=== PATIENT | male | born 1950 | race African-American/Black ===

== ENCOUNTER 2019-05-23 11:30 | Inpatient (IN) | payer MEDICARE, MEDICAID ==
[~2019-05-23] VITALS: Ht 182.9 cm; Wt 108.1 kg
[2019-05-23] MEDS ORDERED: INSNOV SQ (11:35)
[2019-05-23] MEDS ORDERED: HTN PO (11:35)
[2019-05-23] MEDS ORDERED: DIABETIC MED PO (11:35)
[2019-05-23] MEDS ORDERED: NITROGLYCERIN 50 MG/D5% WATER 250 ML IV PRN ×3 (11:42→20:30)
[2019-05-23 12:00] LABS: BASOPHILS % (AUTO) 1.2 % (0.0-2.0); EOSINOPHILS % (AUTO) 0.7 % (1.0-6.0); HEMATOCRIT 35.2 % (41-53); HEMOGLOBIN 10.8 g/dL (13.5-17.5); LYMPHOCYTES # (AUTO) 4.7 K/uL (1.0-4.8); LYMPHOCYTES % (AUTO) 21.6 % (22.0-44.0); MEAN CORPUSCULAR HEMOGLOBIN 22.4 pg (26.0-34.0); MEAN CORPUSCULAR HGB CONC 30.7 G/dL (31.0-37.0); MEAN CORPUSCULAR VOLUME 73 fL (80-100); MONOCYTES # (AUTO) 1.5 K/uL (0.1-1.0); MONOCYTES % (AUTO) 6.9 % (2.0-9.0); NEUTROPHILS # (AUTO) 15.3 K/uL (1.8-7.7); NEUTROPHILS % (AUTO) 69.6 % (40.0-70.0); PLATELET COUNT (AUTO) 330 K/uL (150-450); RED BLOOD CELL COUNT(AUTO) 4.83 MIL/uL (4.50-5.90)
[2019-05-23] MEDS ORDERED: FUROSEMIDE 40 MG/4 ML VIAL IVP ONE (12:00)
[2019-05-23] MEDS ORDERED: AZITHROMYCIN 500 MG/NS 250 ML IV ONE (12:00)
[2019-05-23] MEDS ORDERED: CefTRIAXone 1 GM/DEXTROSE 50 ML IV ONE (12:00)
[2019-05-23 12:14] LABS: CREATININE 6.23 mg/dL (0.60-1.30); POTASSIUM 4.2 mmol/L (3.5-5.1)
[2019-05-23 12:20] LABS: BILIRUBIN,TOTAL 0.6 mg/dL (0.1-1.0); TOTAL PROTEIN, SERUM 8.1 g/dL (6.4-8.2)
[2019-05-23 12:24] LABS: ABG BASE EXCESS -6.1 mmol/L (-2.0-3.0); ABG CARBOXYHEMOGLOBIN 0.8 % (0.0-1.5); ABG HCO3 19.5 mmol/L (22.0-26.0); ABG METHEMOGLOBIN 0.2 % (0.0-1.5); ABG OXYGEN CONTENT 15.5 mL/dL (15.0-23.0); ABG OXYGEN SATURATION 94.1 % (95.0-98.0); ABG OXYHEMOGLOBIN 93.2 % (94.0-100.0); ABG PCO2 46 mmHg (35-45); ABG TOTAL HEMOGLOBIN 11.8 G/dL (12.0-18.0); PO2, ARTERIAL BG 78.6 mmHg (79.0-87.0); SITE, BLOOD GAS LFT RADIAL; SOURCE, BLOOD GAS ARTERIAL; TEMPERATURE, FAHRENHEIT, BG 98.6 FAHREN (96.0-98.6)
[2019-05-23 12:26] LABS: O2 DEVICE,BLOOD GAS NON REBREATHER (ROOM AIR)
[2019-05-23] MEDS ORDERED: ACETAMINOPHEN 325 MG TABLET PO PRN (12:45)
[2019-05-23] MEDS ORDERED: ONDANSETRON HCL 4 MG/2 ML VIAL IVP PRN (12:45)
[2019-05-23 13:07] LABS: AMPHET/METH SCREEN,URINE NEGATIVE (NEGATIVE); BARBITURATE SCREEN, URINE NEGATIVE (NEGATIVE); BENZODIAZEPINES SCREEN,URINE NEGATIVE (NEGATIVE); CANNABINOID SCREEN,URINE NEGATIVE (NEGATIVE); COCAINE SCREEN,URINE POSITIVE (NEGATIVE); METHADONE SCREEN, URINE NEGATIVE (NEGATIVE); OPIATE SCREEN,URINE NEGATIVE (NEGATIVE); PHENCYCLIDINE SCREEN,URINE POSITIVE (NEGATIVE)
[2019-05-23 20:45] VITALS: BP 212/117
[2019-05-23] MEDS ORDERED: VANCOMYCIN HCL 1 GM/D5% WATER 200 ML IV PRN (22:15)
[2019-05-23] MEDS ORDERED: SODIUM CHLORIDE 0.9% 250 ML IV ONE (22:21)
[2019-05-23] MEDS: PIPERACILLIN SODIUM/TAZOBACTAM 2.25 GM in DEXTROSE 5%-WATER 50 ML IV SCH (22:24)
[2019-05-23] MEDS ORDERED: VANCOMYCIN HCL 1 GM/D5% WATER 200 ML IV ONE (22:30)
[2019-05-24] VITALS: BP 141/84
[2019-05-24] MEDS ORDERED: MAGNESIUM HYDROXIDE SUSPENSION 30 ML UDCUP PO PRN (00:45)
[2019-05-24] MEDS ORDERED: DEXTROSE 50%-WATER 25 GM/50 ML SYRINGE IVP PRN (00:45)
[2019-05-24] MEDS ORDERED: OxyCODONE HCL/ACETAMINOPHEN 5-325 MG TABLET PO PRN ×2 (00:45)
[2019-05-24] MEDS ORDERED: ACETAMINOPHEN 325 MG TABLET PO PRN (00:45)
[2019-05-24] MEDS ORDERED: 0.9% SODIUM CHLORIDE 10 ML SYRINGE IVP PRN (00:45)
[2019-05-24] MEDS ORDERED: ONDANSETRON HCL 4 MG/2 ML VIAL IVP PRN (00:45)
[2019-05-24] MEDS ORDERED: VANCOMYCIN HCL 1 GM/D5% WATER 200 ML IV ONE (03:00)
[2019-05-24] MEDS: PIPERACILLIN SODIUM/TAZOBACTAM 2.25 GM in DEXTROSE 5%-WATER 50 ML IV SCH ×4 (03:34→21:27)
[2019-05-24 04:00] VITALS: BP 177/79
[2019-05-24 05:23] LABS: CALCIUM, TOTAL 7.6 mg/dL (8.8-10.5); CREATININE 6.33 mg/dL (0.60-1.30); MAGNESIUM 1.6 mg/dL (1.80-2.40); POTASSIUM 3.7 mmol/L (3.5-5.1)
[2019-05-24] MEDS: INSULIN LISPRO 100 UNITS/ML SQ PRN ×4 (06:11→21:28)
[2019-05-24 07:00] LABS: GLUCOSE,POINT OF CARE 199 MG/DL (70-110)
[2019-05-24 07:45] VITALS: BP 165/74
[2019-05-24 08:01] VITALS: BP 179/86
[2019-05-24] MEDS: FAMOTIDINE 10 MG/ML 2 ML VIAL IVP SCH (08:49)
[2019-05-24] MEDS: DOCUSATE SODIUM 100 MG CAPSULE PO SCH ×2 (08:49→21:27)
[2019-05-24] MEDS ORDERED: AmLODIPine BESYLATE 5 MG TABLET PO SCH ×2 (09:00→17:45)
[2019-05-24 12:00] VITALS: BP 159/83
[2019-05-24] MEDS ORDERED: METOPROLOL SUCCINATE 25 MG ER TABLET PO SCH (12:30)
[2019-05-24 14:16] LABS: GLUCOSE,POINT OF CARE 271 MG/DL (70-110)
[2019-05-24] MEDS ORDERED: AmLODIPine BESYLATE 5 MG TABLET PO STA (17:36)
[2019-05-24 18:22] LABS: GLUCOSE,POINT OF CARE 190 MG/DL (70-110)
[2019-05-24 20:00] VITALS: BP 137/73
[2019-05-24] MEDS: METOPROLOL TARTRATE 25 MG TABLET PO SCH (21:27)
[2019-05-25] VITALS (7 sets, daily range): BP systolic 134–157; BP diastolic 58–88
[2019-05-25] MEDS: PIPERACILLIN SODIUM/TAZOBACTAM 2.25 GM in DEXTROSE 5%-WATER 50 ML IV SCH ×4 (03:33→23:02)
[2019-05-25 04:46] LABS: BASOPHILS % (AUTO) 0.8 % (0.0-2.0); EOSINOPHILS % (AUTO) 1.1 % (1.0-6.0); HEMATOCRIT 28.4 % (41-53); HEMOGLOBIN 8.9 g/dL (13.5-17.5); LYMPHOCYTES # (AUTO) 2.1 K/uL (1.0-4.8); LYMPHOCYTES % (AUTO) 12.9 % (22.0-44.0); MEAN CORPUSCULAR HEMOGLOBIN 22.4 pg (26.0-34.0); MEAN CORPUSCULAR HGB CONC 31.4 G/dL (31.0-37.0); MEAN CORPUSCULAR VOLUME 71 fL (80-100); MONOCYTES # (AUTO) 1.8 K/uL (0.1-1.0); MONOCYTES % (AUTO) 10.7 % (2.0-9.0); NEUTROPHILS # (AUTO) 12.2 K/uL (1.8-7.7); NEUTROPHILS % (AUTO) 74.5 % (40.0-70.0); PLATELET COUNT (AUTO) 242 K/uL (150-450); RED BLOOD CELL COUNT(AUTO) 3.98 MIL/uL (4.50-5.90); RED CELL DISTRIBUTION WIDTH 15.4 % (11.5-14.5)
[2019-05-25 05:15] LABS: CALCIUM, TOTAL 7.7 mg/dL (8.8-10.5); CREATININE 6.01 mg/dL (0.60-1.30); VANCOMYCIN,RANDOM 20.1 mcg/mL (25.0-50.0)
[2019-05-25] MEDS: INSULIN LISPRO 100 UNITS/ML SQ PRN ×4 (05:55→20:41)
[2019-05-25 06:21] LABS: GLUCOSE,POINT OF CARE 205 MG/DL (70-110)
[2019-05-25 06:21] LABS: GLUCOSE,POINT OF CARE 173 MG/DL (70-110)
[2019-05-25] MEDS: METOPROLOL TARTRATE 25 MG TABLET PO SCH ×2 (06:21→20:33)
[2019-05-25] MEDS: DOCUSATE SODIUM 100 MG CAPSULE PO SCH ×2 (08:00→20:34)
[2019-05-25] MEDS: AmLODIPine BESYLATE 10 MG TABLET PO SCH (08:00)
[2019-05-25] MEDS: FAMOTIDINE 10 MG/ML 2 ML VIAL IVP SCH (08:00)
[2019-05-25] MEDS: HydrALAZINE HCL 25 MG TABLET PO SCH ×3 (10:22→20:34)
[2019-05-25] MEDS: NITROGLYCERIN 2% (1 GM=INCH) PACKET TP SCH ×3 (12:05→23:02)
[2019-05-25 12:17] LABS: GLUCOSE,POINT OF CARE 322 MG/DL (70-110)
[2019-05-25] MEDS ORDERED: VANCOMYCIN HCL 1 GM/D5% WATER 200 ML IV ONE (15:00)
[2019-05-25 22:31] LABS: GLUCOMETER DEV NAME(LOC) 5N.2; GLUCOSE,POINT OF CARE 192 MG/DL (70-110)
[2019-05-25 22:31] LABS: GLUCOMETER DEV NAME(LOC) 5N.2; GLUCOSE,POINT OF CARE 201 MG/DL (70-110)
[2019-05-26] MEDS: NITROGLYCERIN 2% (1 GM=INCH) PACKET TP SCH ×3 (05:03→17:27)
[2019-05-26] MEDS: PIPERACILLIN SODIUM/TAZOBACTAM 2.25 GM in DEXTROSE 5%-WATER 50 ML IV SCH ×4 (05:03→22:09)
[2019-05-26 05:18] VITALS: BP 156/85
[2019-05-26] MEDS: INSULIN LISPRO 100 UNITS/ML SQ PRN ×4 (06:08→20:36)
[2019-05-26 06:55] LABS: CALCIUM, TOTAL 7.6 mg/dL (8.8-10.5); CREATININE 5.96 mg/dL (0.60-1.30); MAGNESIUM 1.7 mg/dL (1.80-2.40)
[2019-05-26 07:01] LABS: GLUCOMETER DEV NAME(LOC) 5N.2; GLUCOSE,POINT OF CARE 153 MG/DL (70-110)
[2019-05-26] MEDS: METOPROLOL TARTRATE 25 MG TABLET PO SCH ×2 (08:14→20:33)
[2019-05-26] MEDS: HydrALAZINE HCL 25 MG TABLET PO SCH (08:14)
[2019-05-26] MEDS: AmLODIPine BESYLATE 10 MG TABLET PO SCH (08:14)
[2019-05-26] MEDS: FAMOTIDINE 10 MG/ML 2 ML VIAL IVP SCH (08:15)
[2019-05-26 08:29] VITALS: BP 157/81
[2019-05-26] MEDS: DOCUSATE SODIUM 100 MG CAPSULE PO SCH ×2 (09:00→20:33)
[2019-05-26 11:59] VITALS: BP 165/86
[2019-05-26 16:56] VITALS: BP 139/84
[2019-05-26] MEDS: HydrALAZINE HCL 50 MG TABLET PO SCH ×2 (17:12→20:33)
[2019-05-26 20:33] VITALS: BP 165/77
[2019-05-27 00:22] VITALS: BP 149/79
[2019-05-27] MEDS: NITROGLYCERIN 2% (1 GM=INCH) PACKET TP SCH ×4 (00:26→17:49)
[2019-05-27] MEDS: PIPERACILLIN SODIUM/TAZOBACTAM 2.25 GM in DEXTROSE 5%-WATER 50 ML IV SCH ×3 (04:33→17:49)
[2019-05-27 04:58] VITALS: BP 147/79
[2019-05-27 05:36] LABS: GLUCOMETER DEV NAME(LOC) 5N.2; GLUCOSE,POINT OF CARE 293 MG/DL (70-110)
[2019-05-27 05:36] LABS: GLUCOMETER DEV NAME(LOC) 5S.2A; GLUCOSE,POINT OF CARE 218 MG/DL (70-110)
[2019-05-27 05:36] LABS: GLUCOMETER DEV NAME(LOC) 5N.2; GLUCOSE,POINT OF CARE 212 MG/DL (70-110)
[2019-05-27] MEDS: INSULIN LISPRO 100 UNITS/ML SQ PRN ×4 (06:13→21:15)
[2019-05-27 06:33] LABS: BASOPHILS % (AUTO) 1.5 % (0.0-2.0); EOSINOPHILS % (AUTO) 2.4 % (1.0-6.0); HEMATOCRIT 27.2 % (41-53); HEMOGLOBIN 8.6 g/dL (13.5-17.5); LYMPHOCYTES # (AUTO) 1.8 K/uL (1.0-4.8); LYMPHOCYTES % (AUTO) 14.5 % (22.0-44.0); MEAN CORPUSCULAR HEMOGLOBIN 22.7 pg (26.0-34.0); MEAN CORPUSCULAR HGB CONC 31.7 G/dL (31.0-37.0); MEAN CORPUSCULAR VOLUME 72 fL (80-100); MONOCYTES # (AUTO) 1.1 K/uL (0.1-1.0); MONOCYTES % (AUTO) 8.7 % (2.0-9.0); NEUTROPHILS # (AUTO) 9.3 K/uL (1.8-7.7); NEUTROPHILS % (AUTO) 72.9 % (40.0-70.0); PLATELET COUNT (AUTO) 262 K/uL (150-450); RED CELL DISTRIBUTION WIDTH 15.5 % (11.5-14.5)
[2019-05-27 06:50] LABS: ALBUMIN 2.2 g/dL (3.4-5.0); BILIRUBIN,TOTAL 0.5 mg/dL (0.1-1.0); CALCIUM, TOTAL 7.9 mg/dL (8.8-10.5); CREATININE 5.77 mg/dL (0.60-1.30); MAGNESIUM 1.8 mg/dL (1.80-2.40); TOTAL PROTEIN, SERUM 6.4 g/dL (6.4-8.2); VANCOMYCIN,RANDOM 17.5 mcg/mL (25.0-50.0)
[2019-05-27 07:20] VITALS: BP_SYST 142; BP_SYST 144; BP_DIAS 87
[2019-05-27] MEDS: DOCUSATE SODIUM 100 MG CAPSULE PO SCH ×2 (08:28→21:10)
[2019-05-27] MEDS: METOPROLOL TARTRATE 25 MG TABLET PO SCH ×2 (08:29→21:10)
[2019-05-27] MEDS: FAMOTIDINE 10 MG/ML 2 ML VIAL IVP SCH (08:29)
[2019-05-27] MEDS: AmLODIPine BESYLATE 10 MG TABLET PO SCH (08:29)
[2019-05-27] MEDS: HydrALAZINE HCL 50 MG TABLET PO SCH ×3 (08:29→21:10)
[2019-05-27 08:31] LABS: GLUCOMETER DEV NAME(LOC) 5N.2; GLUCOSE,POINT OF CARE 174 MG/DL (70-110)
[2019-05-27 11:12] VITALS: BP 152/79
[2019-05-27] MEDS ORDERED: VANCOMYCIN HCL 1 GM/D5% WATER 200 ML IV ONE (13:00)
[2019-05-27 15:20] VITALS: BP 172/92
[2019-05-27] MEDS ORDERED: CloNIDine HCL 0.1 MG TABLET PO PRN (20:00)
[2019-05-27 20:20] VITALS: BP 159/90
[2019-05-27 20:46] LABS: GLUCOMETER DEV NAME(LOC) 5N.2; GLUCOSE,POINT OF CARE 258 MG/DL (70-110)
[2019-05-28 00:26] LABS: GLUCOMETER DEV NAME(LOC) 5N.2; GLUCOSE,POINT OF CARE 207 MG/DL (70-110)
[2019-05-28 00:57] VITALS: BP 145/81
[2019-05-28] MEDS: NITROGLYCERIN 2% (1 GM=INCH) PACKET TP SCH ×3 (01:42→12:51)
[2019-05-28] MEDS: PIPERACILLIN SODIUM/TAZOBACTAM 2.25 GM in DEXTROSE 5%-WATER 50 ML IV SCH ×2 (01:42→10:00)
[2019-05-28 04:37] VITALS: BP 149/78
[2019-05-28] MEDS ORDERED: SODIUM CHLORIDE 0.9% 1,000 ML IV ONE ×2 (05:30→08:44)
[2019-05-28 05:56] LABS: GLUCOMETER DEV NAME(LOC) 5N.1; GLUCOSE,POINT OF CARE 204 MG/DL (70-110)
[2019-05-28 06:15] LABS: BASOPHILS % (AUTO) 1.4 % (0.0-2.0); EOSINOPHILS % (AUTO) 2.8 % (1.0-6.0); HEMATOCRIT 27.9 % (41-53); HEMOGLOBIN 8.9 g/dL (13.5-17.5); LYMPHOCYTES # (AUTO) 1.8 K/uL (1.0-4.8); LYMPHOCYTES % (AUTO) 15.7 % (22.0-44.0); MEAN CORPUSCULAR HEMOGLOBIN 22.5 pg (26.0-34.0); MEAN CORPUSCULAR HGB CONC 31.7 G/dL (31.0-37.0); MEAN CORPUSCULAR VOLUME 71 fL (80-100); MONOCYTES # (AUTO) 0.9 K/uL (0.1-1.0); MONOCYTES % (AUTO) 8.1 % (2.0-9.0); NEUTROPHILS # (AUTO) 8.3 K/uL (1.8-7.7); PLATELET COUNT (AUTO) 293 K/uL (150-450); RED BLOOD CELL COUNT(AUTO) 3.93 MIL/uL (4.50-5.90); RED CELL DISTRIBUTION WIDTH 15.3 % (11.5-14.5)
[2019-05-28 07:13] LABS: CALCIUM, TOTAL 8.2 mg/dL (8.8-10.5); CREATININE 5.71 mg/dL (0.60-1.30); POTASSIUM 3.9 mmol/L (3.5-5.1)
[2019-05-28] MEDS ORDERED: LIDOCAINE/PF 1% 30 ML VIAL ONE (07:24)
[2019-05-28] MEDS ORDERED: SODIUM CHLORIDE 0.9% 0 ML IV ONE (07:24)
[2019-05-28] MEDS ORDERED: HEPARIN SODIUM,PORCINE 5,000 UNITS/ML VIAL ONE ×2 (07:28→09:17)
[2019-05-28 07:46] VITALS: BP 166/91
[2019-05-28 08:32] LABS: GLUCOMETER DEV NAME(LOC) 5S.2A; GLUCOSE,POINT OF CARE 199 MG/DL (70-110)
[2019-05-28] MEDS: FAMOTIDINE 10 MG/ML 2 ML VIAL IVP SCH (09:00)
[2019-05-28] MEDS ORDERED: EPOETIN ALFA 10,000 UNITS/ML VIAL SQ SCH (09:00)
[2019-05-28] MEDS: METOPROLOL TARTRATE 25 MG TABLET PO SCH (09:00)
[2019-05-28] MEDS: HydrALAZINE HCL 50 MG TABLET PO SCH (09:00)
[2019-05-28] MEDS: AmLODIPine BESYLATE 10 MG TABLET PO SCH (09:00)
[2019-05-28] MEDS: DOCUSATE SODIUM 100 MG CAPSULE PO SCH (09:00)
[2019-05-28] MEDS: INSULIN LISPRO 100 UNITS/ML SQ PRN (12:57)
[2019-05-28] MEDS ORDERED: CARV25 PO (15:27)
[2019-05-28] MEDS ORDERED: GLIP10 PO (15:27)
[2019-05-28] MEDS ORDERED: AMLO10TA7 PO (15:27)
[2019-05-28] MEDS ORDERED: LIDOCAINE/PF 2% 5 ML VIAL IM ONE (15:59)
[2019-05-28] MEDS ORDERED: PROPOFOL 1% 20 ML VIAL IVP ONE (15:59)
[2019-05-28] MEDS ORDERED: FentaNYL CITRATE-PF 100 MCG/2 ML VIAL IVP ONE (15:59)
[2019-05-28 16:56] LABS: GLUCOMETER DEV NAME(LOC) 5N.1; GLUCOSE,POINT OF CARE 172 MG/DL (70-110)
== END 2019-05-28 16:00 | disposition home or self-care (01) | DRG 853 ==
LOC: EMS 11:50 → ICU 18:35 → 5S 05-25 13:45
PROVIDERS: ADMIT Internal Medicine; ATTEND Internal Medicine
PROC: 031C0ZF Bypass Left Radial Artery to Lower Arm Vein, Open Approach (ICD-10-PCS; principal; 2019-05-28 08:30)
DX: A41.9 Sepsis, unspecified organism (principal); E43 Unspecified severe protein-calorie malnutrition; J18.1 Lobar pneumonia, unspecified organism; J96.01 Acute respiratory failure with hypoxia; B59 Pneumocystosis; N18.6 End stage renal disease; E87.2 Acidosis; I13.2 Hypertensive heart and chronic kidney disease with heart failure and with stage 5 chronic kidney disease, or end stage renal disease; I16.1 Hypertensive emergency; N17.9 Acute kidney failure, unspecified; I16.0 Hypertensive urgency; D64.9 Anemia, unspecified; E11.21 Type 2 diabetes mellitus with diabetic nephropathy; E11.22 Type 2 diabetes mellitus with diabetic chronic kidney disease; E11.65 Type 2 diabetes mellitus with hyperglycemia; F14.10 Cocaine abuse, uncomplicated; I50.9 Heart failure, unspecified; I25.10 Atherosclerotic heart disease of native coronary artery without angina pectoris; Z91.19 Patient's noncompliance with other medical treatment and regimen; Z68.32 Body mass index [BMI] 32.0-32.9, adult; Z99.2 Dependence on renal dialysis
CPT/HCPCS: 36600; 71250; 82805; 83735; 87040; 87081; 93005; 93306; 93970; 96365; 96368; 96375; 99291; G0378; J0456; J0690; J0696; J0885; J1644; J1940; J2543; J2704; J3010; J3370; J3490; J7030; J7050; J7060

== ENCOUNTER 2019-05-31 09:46 | Inpatient (IN) | payer MEDICARE, MEDICAID ==
[~2019-05-31] VITALS: Ht 180.3 cm; Wt 106.7 kg
[~2019-05-31 09:46] MED LIST: AMLO10TA7 PO; CARV25 PO; GLIP10 PO
[2019-05-31] MEDS ORDERED: BUMETANIDE 0.25 MG/ML 4 ML VIAL IVP ONE (10:00)
[2019-05-31 10:17] LABS: BASOPHILS % (AUTO) 1.2 % (0.0-2.0); EOSINOPHILS % (AUTO) 2.3 % (1.0-6.0); HEMATOCRIT 30.1 % (41-53); HEMOGLOBIN 9.3 g/dL (13.5-17.5); LYMPHOCYTES # (AUTO) 2.7 K/uL (1.0-4.8); LYMPHOCYTES % (AUTO) 21.3 % (22.0-44.0); MEAN CORPUSCULAR HEMOGLOBIN 22.5 pg (26.0-34.0); MEAN CORPUSCULAR HGB CONC 30.9 G/dL (31.0-37.0); MEAN CORPUSCULAR VOLUME 73 fL (80-100); MONOCYTES # (AUTO) 0.9 K/uL (0.1-1.0); NEUTROPHILS # (AUTO) 8.7 K/uL (1.8-7.7); NEUTROPHILS % (AUTO) 68.2 % (40.0-70.0); PLATELET COUNT (AUTO) 359 K/uL (150-450); RED BLOOD CELL COUNT(AUTO) 4.14 MIL/uL (4.50-5.90); RED CELL DISTRIBUTION WIDTH 15.7 % (11.5-14.5)
[2019-05-31 10:24] LABS: CALCIUM, TOTAL 7.8 mg/dL (8.8-10.5); CREATININE 5.74 mg/dL (0.60-1.30); POTASSIUM 3.9 mmol/L (3.5-5.1)
[2019-05-31 10:25] LABS: PROTHROMBIN TIME 10.2 SEC (9.4-11.6)
[2019-05-31 10:49] LABS: ALBUMIN 2.6 g/dL (3.4-5.0); BILIRUBIN,TOTAL 0.4 mg/dL (0.1-1.0); TOTAL PROTEIN, SERUM 7.8 g/dL (6.4-8.2)
[2019-05-31 16:30] LABS: APPEARANCE,URINE CLEAR (CLEAR); BILIRUBIN,URINE NEGATIVE (NEGATIVE); GLUCOSE, URINE (UA) 500 mg/dL (NEGATIVE); KETONES,URINE NEGATIVE (NEGATIVE); LEUKOCYTE ESTERASE ,URINE NEGATIVE (NEGATIVE); NITRATE,URINE NEGATIVE (NEGATIVE); OCCULT BLOOD,URINE TRACE (NEGATIVE); PH,URINE 5.5 (5.0-8.0); PROTEIN,URINE SEE CONFIRM (NEGATIVE); UROBILINOGEN,URINE 0.2 mg/dL (<=1.0)
[2019-05-31 16:39] LABS: SULFOSALICYLIC ACID,URINE 4+ (Negative)
[2019-05-31 16:41] LABS: BACTERIA,URINE None Seen /HPF (None Seen); RBC,URINE 0-2 /HPF (0-2); SQUAMOUS EPITHELIAL CELL,UR Rare /LPF (None Seen)
[2019-05-31 16:44] LABS: AMPHET/METH SCREEN,URINE NEGATIVE (NEGATIVE); BARBITURATE SCREEN, URINE NEGATIVE (NEGATIVE); BENZODIAZEPINES SCREEN,URINE NEGATIVE (NEGATIVE); CANNABINOID SCREEN,URINE NEGATIVE (NEGATIVE); METHADONE SCREEN, URINE NEGATIVE (NEGATIVE); OPIATE SCREEN,URINE NEGATIVE (NEGATIVE)
[2019-05-31 17:04] LABS: COCAINE SCREEN,URINE POSITIVE (NEGATIVE)
[2019-05-31 17:05] LABS: PHENCYCLIDINE SCREEN,URINE POSITIVE (NEGATIVE)
[2019-05-31 17:15] VITALS: BP 149/78
[2019-05-31] MEDS: AmLODIPine BESYLATE 10 MG TABLET PO SCH (17:35)
[2019-05-31] MEDS ORDERED: DEXTROSE 50%-WATER 25 GM/50 ML SYRINGE IVP PRN (17:45)
[2019-05-31] MEDS ORDERED: PNEUMOCOCCAL VACCINE POLYVALENT 0.5 ML VIAL [PPSV23] IM ONE (18:45)
[2019-05-31] MEDS ORDERED: INFLUENZA VIRUS VACCINE QVS 2019-20 (3YR+)/PF 60 MCG/0.5 ML SYRINGE IM ONE (18:45)
[2019-05-31 20:00] VITALS: BP 138/73
[2019-05-31] MEDS: INSULIN LISPRO 100 UNITS/ML SQ PRN (20:31)
[2019-05-31] MEDS: METOPROLOL TARTRATE 25 MG TABLET PO SCH (20:32)
[2019-05-31] MEDS: FUROSEMIDE 40 MG/4 ML VIAL IVP SCH (20:32)
[2019-05-31] MEDS ORDERED: HydrALAZINE HCL 25 MG TABLET PO SCH (21:00)
[2019-06-01 00:01] VITALS: BP 154/82
[2019-06-01 04:08] VITALS: BP 149/82
[2019-06-01] MEDS: INSULIN LISPRO 100 UNITS/ML SQ PRN ×4 (06:40→20:47)
[2019-06-01 06:49] LABS: CALCIUM, TOTAL 7.5 mg/dL (8.8-10.5); CREATININE 5.71 mg/dL (0.60-1.30); MAGNESIUM 1.7 mg/dL (1.80-2.40); PHOSPHORUS 4.5 mg/dL (2.5-4.9); POTASSIUM 3.9 mmol/L (3.5-5.1)
[2019-06-01 07:40] VITALS: BP 143/83
[2019-06-01] MEDS: METOPROLOL TARTRATE 25 MG TABLET PO SCH ×2 (08:59→20:45)
[2019-06-01] MEDS: FUROSEMIDE 40 MG/4 ML VIAL IVP SCH (08:59)
[2019-06-01] MEDS: HydrALAZINE HCL 25 MG TABLET PO SCH ×3 (08:59→20:45)
[2019-06-01] MEDS: AmLODIPine BESYLATE 10 MG TABLET PO SCH (08:59)
[2019-06-01 11:20] VITALS: BP 146/80
[2019-06-01 12:01] LABS: GLUCOMETER DEV NAME(LOC) 5S.1; GLUCOSE,POINT OF CARE 203 MG/DL (70-110)
[2019-06-01 12:01] LABS: GLUCOMETER DEV NAME(LOC) 5S.1; GLUCOSE,POINT OF CARE 201 MG/DL (70-110)
[2019-06-01 16:34] VITALS: BP 153/65
[2019-06-01] MEDS ORDERED: ACETAMINOPHEN 325 MG TABLET PO PRN (16:45)
[2019-06-01] MEDS ORDERED: OMEPRAZOLE 20 MG CAPSULE PO PRN (16:45)
[2019-06-01] MEDS ORDERED: PETROLATUM,WHITE 28 GM JELLY TP PRN (16:45)
[2019-06-01] MEDS ORDERED: ALBUTEROL SULFATE HFA 90 MCG/PUFF 8 GM INHALER IH PRN (16:45)
[2019-06-01] MEDS ORDERED: MAGNESIUM HYDROXIDE SUSPENSION 30 ML UDCUP PO PRN (16:45)
[2019-06-01] MEDS ORDERED: DOCUSATE SODIUM 100 MG CAPSULE PO PRN (16:45)
[2019-06-01] MEDS ORDERED: IBUPROFEN 600 MG TABLET PO PRN (16:45)
[2019-06-01] MEDS ORDERED: ONDANSETRON HCL 4 MG TABLET PO PRN (16:45)
[2019-06-01] MEDS ORDERED: BACITRACIN 28.4 GM OINTMENT TP PRN (16:45)
[2019-06-01] MEDS ORDERED: CloNIDine HCL 0.1 MG TABLET PO PRN (16:45)
[2019-06-01] MEDS ORDERED: BENZOCAINE/MENTHOL LOZENGE MM PRN (16:45)
[2019-06-01] MEDS ORDERED: MAG HYDROX/AL HYDROX/SIMETH ES 30 ML SUSPENSION UDCUP PO PRN (16:45)
[2019-06-01] MEDS ORDERED: LOPERAMIDE HCL 2 MG CAPSULE PO PRN (16:45)
[2019-06-01 20:15] VITALS: BP 143/78
[2019-06-01 21:46] LABS: GLUCOMETER DEV NAME(LOC) 5S.2A; GLUCOSE,POINT OF CARE 153 MG/DL (70-110)
[2019-06-01 21:46] LABS: GLUCOMETER DEV NAME(LOC) 5S.2A; GLUCOSE,POINT OF CARE 222 MG/DL (70-110)
[2019-06-01 21:46] LABS: GLUCOMETER DEV NAME(LOC) 5S.2A; GLUCOSE,POINT OF CARE 202 MG/DL (70-110)
[2019-06-01 21:46] LABS: GLUCOMETER DEV NAME(LOC) 5S.2A; GLUCOSE,POINT OF CARE 169 MG/DL (70-110)
[2019-06-02] VITALS (7 sets, daily range): BP systolic 134–147; BP diastolic 63–79
[2019-06-02] MEDS: INSULIN LISPRO 100 UNITS/ML SQ PRN ×4 (05:57→20:58)
[2019-06-02 06:45] LABS: BASOPHILS % (AUTO) 1.3 % (0.0-2.0); EOSINOPHILS % (AUTO) 2.7 % (1.0-6.0); HEMATOCRIT 28.7 % (41-53); LYMPHOCYTES # (AUTO) 2.5 K/uL (1.0-4.8); LYMPHOCYTES % (AUTO) 19.5 % (22.0-44.0); MEAN CORPUSCULAR HEMOGLOBIN 22.4 pg (26.0-34.0); MEAN CORPUSCULAR HGB CONC 31.3 G/dL (31.0-37.0); MEAN CORPUSCULAR VOLUME 72 fL (80-100); MONOCYTES # (AUTO) 0.9 K/uL (0.1-1.0); MONOCYTES % (AUTO) 7.3 % (2.0-9.0); NEUTROPHILS # (AUTO) 8.9 K/uL (1.8-7.7); NEUTROPHILS % (AUTO) 69.2 % (40.0-70.0); PLATELET COUNT (AUTO) 358 K/uL (150-450); RED CELL DISTRIBUTION WIDTH 15.2 % (11.5-14.5)
[2019-06-02 07:10] LABS: ALBUMIN 2.5 g/dL (3.4-5.0); BILIRUBIN,TOTAL 0.3 mg/dL (0.1-1.0); CALCIUM, TOTAL 7.9 mg/dL (8.8-10.5); CREATININE 5.33 mg/dL (0.60-1.30); MAGNESIUM 1.8 mg/dL (1.80-2.40); PHOSPHORUS 3.9 mg/dL (2.5-4.9); POTASSIUM 3.7 mmol/L (3.5-5.1); TOTAL PROTEIN, SERUM 7.3 g/dL (6.4-8.2)
[2019-06-02] MEDS: FUROSEMIDE 40 MG/4 ML VIAL IVP SCH (08:16)
[2019-06-02] MEDS: HydrALAZINE HCL 25 MG TABLET PO SCH ×3 (08:16→20:51)
[2019-06-02] MEDS: AmLODIPine BESYLATE 10 MG TABLET PO SCH (08:16)
[2019-06-02] MEDS: METOPROLOL TARTRATE 25 MG TABLET PO SCH ×2 (08:16→20:51)
[2019-06-02 15:51] LABS: GLUCOMETER DEV NAME(LOC) 5N.1; GLUCOSE,POINT OF CARE 232 MG/DL (70-110)
[2019-06-02 21:56] LABS: GLUCOMETER DEV NAME(LOC) 5S.2A; GLUCOSE,POINT OF CARE 165 MG/DL (70-110)
[2019-06-02 21:56] LABS: GLUCOMETER DEV NAME(LOC) 5S.2A; GLUCOSE,POINT OF CARE 204 MG/DL (70-110)
[2019-06-03 02:05] LABS: GLUCOMETER DEV NAME(LOC) 5S.1; GLUCOSE,POINT OF CARE 188 MG/DL (70-110)
[2019-06-03 05:26] VITALS: BP 141/65
[2019-06-03] MEDS: INSULIN LISPRO 100 UNITS/ML SQ PRN ×2 (06:29→12:21)
[2019-06-03 06:55] LABS: GLUCOMETER DEV NAME(LOC) 5N.1; GLUCOSE,POINT OF CARE 158 MG/DL (70-110)
[2019-06-03 07:13] VITALS: BP 144/80
[2019-06-03] MEDS ORDERED: IPRATROPIUM BROMIDE 0.5 MG/2.5 ML NEB SOLUTION NEB PRN (08:00)
[2019-06-03] MEDS ORDERED: ALBUTEROL SULFATE 2.5 MG/0.5 ML NEB SOLUTION NEB PRN (08:00)
[2019-06-03] MEDS: FUROSEMIDE 40 MG/4 ML VIAL IVP SCH (09:00)
[2019-06-03] MEDS: METOPROLOL TARTRATE 25 MG TABLET PO SCH (09:01)
[2019-06-03] MEDS: HydrALAZINE HCL 25 MG TABLET PO SCH (09:01)
[2019-06-03 11:02] VITALS: BP 158/87
[2019-06-03] MEDS: AmLODIPine BESYLATE 10 MG TABLET PO SCH (11:28)
[2019-06-03] MEDS ORDERED: HYDR-4174 PO (11:45)
[2019-06-03] MEDS ORDERED: FURO-152 PO (11:46)
[2019-06-05 00:11] LABS: GLUCOMETER DEV NAME(LOC) 5N.2; GLUCOSE,POINT OF CARE 228 MG/DL (70-110)
== END 2019-06-03 15:00 | disposition home or self-care (01) | DRG 291 ==
LOC: EDUNIT# 09:46 → EMS 09:48 → 5S 16:00
PROVIDERS: ADMIT Internal Medicine; ATTEND Internal Medicine
PROC: 3E02340 Introduction of Influenza Vaccine into Muscle, Percutaneous Approach (ICD-10-PCS; principal; 2019-05-31)
PROC: 3E0234Z Introduction of Serum, Toxoid and Vaccine into Muscle, Percutaneous Approach (ICD-10-PCS; 2019-05-31)
PROC: 5A09357 Assistance with Respiratory Ventilation, Less than 24 Consecutive Hours, Continuous Positive Airway Pressure (ICD-10-PCS; 2019-05-31)
DX: I13.0 Hypertensive heart and chronic kidney disease with heart failure and stage 1 through stage 4 chronic kidney disease, or unspecified chronic kidney disease (principal); I50.23 Acute on chronic systolic (congestive) heart failure; E43 Unspecified severe protein-calorie malnutrition; N18.4 Chronic kidney disease, stage 4 (severe); E11.21 Type 2 diabetes mellitus with diabetic nephropathy; E11.22 Type 2 diabetes mellitus with diabetic chronic kidney disease; E55.9 Vitamin D deficiency, unspecified; I25.10 Atherosclerotic heart disease of native coronary artery without angina pectoris; J44.9 Chronic obstructive pulmonary disease, unspecified; K21.9 Gastro-esophageal reflux disease without esophagitis; Z79.84 Long term (current) use of oral hypoglycemic drugs; Z79.899 Other long term (current) drug therapy; Z23 Encounter for immunization
CPT/HCPCS: 83735; 84100; 87081; 90471; 90686; 90732; 93005; 94660; 96374; 99291; J1940; J3490

== ENCOUNTER 2019-07-19 15:09 | Inpatient (IN) | payer MEDICARE, MEDICAID ==
[~2019-07-19] VITALS: Ht 175.3 cm; Wt 107.0 kg
[~2019-07-19 15:09] MED LIST changes: +FURO-152 PO; +HYDR-4174 PO
[2019-07-19 15:28] LABS: GLUCOSE,POINT OF CARE 91 MG/DL (70-110)
[2019-07-19 16:08] LABS: BASOPHILS % (AUTO) 1.5 % (0.0-2.0); EOSINOPHILS % (AUTO) 1.2 % (1.0-6.0); HEMATOCRIT 28.3 % (41-53); HEMOGLOBIN 8.8 g/dL (13.5-17.5); LYMPHOCYTES # (AUTO) 1.8 K/uL (1.0-4.8); LYMPHOCYTES % (AUTO) 20.5 % (22.0-44.0); MEAN CORPUSCULAR HEMOGLOBIN 22.5 pg (26.0-34.0); MEAN CORPUSCULAR HGB CONC 31.2 G/dL (31.0-37.0); MEAN CORPUSCULAR VOLUME 72 fL (80-100); MONOCYTES # (AUTO) 0.7 K/uL (0.1-1.0); MONOCYTES % (AUTO) 7.9 % (2.0-9.0); NEUTROPHILS # (AUTO) 5.9 K/uL (1.8-7.7); NEUTROPHILS % (AUTO) 68.9 % (40.0-70.0); PLATELET COUNT (AUTO) 261 K/uL (150-450); RED BLOOD CELL COUNT(AUTO) 3.93 MIL/uL (4.50-5.90); RED CELL DISTRIBUTION WIDTH 15.5 % (11.5-14.5)
[2019-07-19 16:28] LABS: ALBUMIN 3.6 g/dL (3.4-5.0); BILIRUBIN,TOTAL 1.1 mg/dL (0.1-1.0); CALCIUM, TOTAL 8.7 mg/dL (8.8-10.5); CREATININE 5.15 mg/dL (0.60-1.30); POTASSIUM 4.7 mmol/L (3.5-5.1); TOTAL PROTEIN, SERUM 8.4 g/dL (6.4-8.2)
[2019-07-19] MEDS ORDERED: INSLAN SQ (17:24)
[2019-07-19] MEDS ORDERED: OLME40TA18 PO (17:24)
[2019-07-19] MEDS ORDERED: ROSU10TA22 PO (17:24)
[2019-07-19] MEDS ORDERED: BUMETANIDE 0.25 MG/ML 4 ML VIAL IVP ONE (17:30)
[2019-07-19] MEDS ORDERED: ONDANSETRON HCL 4 MG/2 ML VIAL IVP PRN (18:00)
[2019-07-19] MEDS ORDERED: ACETAMINOPHEN 325 MG TABLET PO PRN (18:00)
[2019-07-19] MEDS ORDERED: 0.9% SODIUM CHLORIDE 10 ML SYRINGE IVP PRN (18:00)
[2019-07-19 20:41] VITALS: BP 159/82
[2019-07-20 00:47] VITALS: BP 160/73
[2019-07-20 01:00] LABS: GLUCOMETER DEV NAME(LOC) 5S.1; GLUCOSE,POINT OF CARE 142 MG/DL (70-110)
[2019-07-20] MEDS ORDERED: -PHARMACY VACCINE NOTE- MISC ONE (01:15)
[2019-07-20 04:08] VITALS: BP 152/66
[2019-07-20 06:38] LABS: BASOPHILS % (AUTO) 1.7 % (0.0-2.0); EOSINOPHILS % (AUTO) 1.6 % (1.0-6.0); HEMATOCRIT 24.6 % (41-53); HEMOGLOBIN 7.9 g/dL (13.5-17.5); LYMPHOCYTES # (AUTO) 1.5 K/uL (1.0-4.8); LYMPHOCYTES % (AUTO) 18.5 % (22.0-44.0); MEAN CORPUSCULAR HEMOGLOBIN 23.1 pg (26.0-34.0); MEAN CORPUSCULAR HGB CONC 32.3 G/dL (31.0-37.0); MEAN CORPUSCULAR VOLUME 72 fL (80-100); MONOCYTES # (AUTO) 0.8 K/uL (0.1-1.0); MONOCYTES % (AUTO) 9.5 % (2.0-9.0); NEUTROPHILS # (AUTO) 5.7 K/uL (1.8-7.7); NEUTROPHILS % (AUTO) 68.7 % (40.0-70.0); PLATELET COUNT (AUTO) 216 K/uL (150-450); RED BLOOD CELL COUNT(AUTO) 3.43 MIL/uL (4.50-5.90); RED CELL DISTRIBUTION WIDTH 15.2 % (11.5-14.5)
[2019-07-20 06:59] LABS: BILIRUBIN,TOTAL 0.9 mg/dL (0.1-1.0); CREATININE 4.93 mg/dL (0.60-1.30); POTASSIUM 4.1 mmol/L (3.5-5.1); TOTAL PROTEIN, SERUM 7.4 g/dL (6.4-8.2)
[2019-07-20] MEDS ORDERED: ALBUTEROL SULFATE 2.5 MG/0.5 ML NEB SOLUTION NEB PRN (07:45)
[2019-07-20] MEDS ORDERED: DEXTROSE 50%-WATER 25 GM/50 ML SYRINGE IVP PRN (07:45)
[2019-07-20] MEDS ORDERED: ONDANSETRON HCL 4 MG/2 ML VIAL IVP PRN (07:45)
[2019-07-20] MEDS ORDERED: IPRATROPIUM BROMIDE 0.5 MG/2.5 ML NEB SOLUTION NEB PRN (07:45)
[2019-07-20] MEDS ORDERED: ACETAMINOPHEN 325 MG TABLET PO PRN (07:45)
[2019-07-20] MEDS ORDERED: HYDROCODONE/ACETAMINOPHEN 5-325 MG TABLET PO PRN (07:45)
[2019-07-20] MEDS ORDERED: ZOLPIDEM TARTRATE 5 MG TABLET PO PRN (07:45)
[2019-07-20 08:13] VITALS: BP 152/74
[2019-07-20 08:57] LABS: THYROID STIMULATING HORMONE 2.96 uIU/mL (0.36-3.74)
[2019-07-20] MEDS: AmLODIPine BESYLATE 10 MG TABLET PO SCH (09:06)
[2019-07-20] MEDS: FERROUS SULFATE 325 MG EC TABLET PO SCH ×2 (09:06→16:39)
[2019-07-20] MEDS: FAMOTIDINE 20 MG TABLET PO SCH (09:06)
[2019-07-20] MEDS: OLMESARTAN MEDOXOMIL 40 MG TABLET PO SCH (09:06)
[2019-07-20] MEDS: HEPARIN SODIUM,PORCINE 5,000 UNITS/ML VIAL SQ SCH ×2 (09:06→20:03)
[2019-07-20] MEDS: CARVEDILOL 25 MG TABLET PO SCH ×2 (09:06→20:02)
[2019-07-20] MEDS: CHOLECALCIFEROL (VIT D3) 1,000 UNITS TABLET PO SCH (09:06)
[2019-07-20] MEDS: BUMETANIDE 0.25 MG/ML 4 ML VIAL IVP SCH ×2 (09:07→20:04)
[2019-07-20] MEDS: INSULIN LISPRO 100 UNITS/ML SQ PRN ×2 (11:37→17:46)
[2019-07-20] MEDS: HydrALAZINE HCL 50 MG TABLET PO SCH ×3 (11:39→20:02)
[2019-07-20 11:40] VITALS: BP_SYST 128; BP_SYST 142; BP_DIAS 71; BP_DIAS 76
[2019-07-20] MEDS ORDERED: EPOETIN ALFA 10,000 UNITS/ML VIAL SQ ONE (12:45)
[2019-07-20 13:35] LABS: AMPHET/METH SCREEN,URINE NEGATIVE (NEGATIVE); BARBITURATE SCREEN, URINE NEGATIVE (NEGATIVE); BENZODIAZEPINES SCREEN,URINE NEGATIVE (NEGATIVE); CANNABINOID SCREEN,URINE POSITIVE (NEGATIVE); COCAINE SCREEN,URINE NEGATIVE (NEGATIVE); METHADONE SCREEN, URINE NEGATIVE (NEGATIVE); OPIATE SCREEN,URINE NEGATIVE (NEGATIVE)
[2019-07-20 13:37] LABS: PHENCYCLIDINE SCREEN,URINE POSITIVE (NEGATIVE)
[2019-07-20 16:01] VITALS: BP 141/68
[2019-07-20] MEDS: GlipiZIDE 10 MG TABLET PO SCH (16:38)
[2019-07-20 19:50] LABS: GLUCOMETER DEV NAME(LOC) 5S.1; GLUCOSE,POINT OF CARE 214 MG/DL (70-110)
[2019-07-20 19:50] LABS: GLUCOMETER DEV NAME(LOC) 5S.1; GLUCOSE,POINT OF CARE 107 MG/DL (70-110)
[2019-07-20 20:25] VITALS: BP 146/78
[2019-07-20] MEDS ORDERED: INSULIN GLARGINE,HUM.REC.ANLOG 100 UNITS/ML SQ SCH (21:00)
[2019-07-20] MEDS ORDERED: ROSUVASTATIN CALCIUM 10 MG TABLET PO SCH (21:00)
[2019-07-21 00:15] VITALS: BP 138/73
[2019-07-21 04:36] VITALS: BP 142/70
[2019-07-21 04:43] LABS: GLUCOMETER DEV NAME(LOC) 5N.2; GLUCOSE,POINT OF CARE 138 MG/DL (70-110)
[2019-07-21 04:43] LABS: GLUCOMETER DEV NAME(LOC) 5N.2; GLUCOSE,POINT OF CARE 162 MG/DL (70-110)
[2019-07-21 06:22] LABS: BASOPHILS % (AUTO) 1.6 % (0.0-2.0); EOSINOPHILS % (AUTO) 1.8 % (1.0-6.0); HEMATOCRIT 24.6 % (41-53); HEMOGLOBIN 8.1 g/dL (13.5-17.5); LYMPHOCYTES # (AUTO) 1.8 K/uL (1.0-4.8); MEAN CORPUSCULAR HEMOGLOBIN 23.5 pg (26.0-34.0); MEAN CORPUSCULAR HGB CONC 32.9 G/dL (31.0-37.0); MEAN CORPUSCULAR VOLUME 71 fL (80-100); MONOCYTES # (AUTO) 0.7 K/uL (0.1-1.0); MONOCYTES % (AUTO) 9.5 % (2.0-9.0); NEUTROPHILS # (AUTO) 4.5 K/uL (1.8-7.7); NEUTROPHILS % (AUTO) 62.1 % (40.0-70.0); PLATELET COUNT (AUTO) 218 K/uL (150-450); RED BLOOD CELL COUNT(AUTO) 3.44 MIL/uL (4.50-5.90)
[2019-07-21 06:27] LABS: HEMOGLOBIN A1C 5.9 % (4.5-6.2)
[2019-07-21 06:38] LABS: BILIRUBIN,TOTAL 0.9 mg/dL (0.1-1.0); CALCIUM, TOTAL 8.1 mg/dL (8.8-10.5); CREATININE 5.09 mg/dL (0.60-1.30); MAGNESIUM 1.8 mg/dL (1.80-2.40); PHOSPHORUS 4.6 mg/dL (2.5-4.9); POTASSIUM 4.2 mmol/L (3.5-5.1); TOTAL PROTEIN, SERUM 6.9 g/dL (6.4-8.2)
[2019-07-21] MEDS: GlipiZIDE 10 MG TABLET PO SCH (06:54)
[2019-07-21 07:47] LABS: GLUCOMETER DEV NAME(LOC) 5N.2; GLUCOSE,POINT OF CARE 92 MG/DL (70-110)
[2019-07-21 08:30] VITALS: BP 146/72
[2019-07-21] MEDS: BUMETANIDE 0.25 MG/ML 4 ML VIAL IVP SCH (09:36)
[2019-07-21] MEDS: CARVEDILOL 25 MG TABLET PO SCH (09:37)
[2019-07-21] MEDS: OLMESARTAN MEDOXOMIL 40 MG TABLET PO SCH (09:37)
[2019-07-21] MEDS: FERROUS SULFATE 325 MG EC TABLET PO SCH (09:37)
[2019-07-21] MEDS: HydrALAZINE HCL 50 MG TABLET PO SCH (09:37)
[2019-07-21] MEDS: AmLODIPine BESYLATE 10 MG TABLET PO SCH (09:37)
[2019-07-21] MEDS: HEPARIN SODIUM,PORCINE 5,000 UNITS/ML VIAL SQ SCH (09:37)
[2019-07-21] MEDS: CHOLECALCIFEROL (VIT D3) 1,000 UNITS TABLET PO SCH (09:37)
[2019-07-21] MEDS: FAMOTIDINE 20 MG TABLET PO SCH (09:37)
[2019-07-21 10:37] VITALS: BP 149/100
[2019-07-21 11:52] LABS: GLUCOMETER DEV NAME(LOC) 5N.2; GLUCOSE,POINT OF CARE 83 MG/DL (70-110)
== END 2019-07-21 11:25 | disposition home or self-care (01) | DRG 291 ==
LOC: EMS 15:10 → 5N 18:56
PROVIDERS: ADMIT Internal Medicine; ATTEND Internal Medicine
DX: I13.0 Hypertensive heart and chronic kidney disease with heart failure and stage 1 through stage 4 chronic kidney disease, or unspecified chronic kidney disease (principal); I50.43 Acute on chronic combined systolic (congestive) and diastolic (congestive) heart failure; E44.0 Moderate protein-calorie malnutrition; N18.4 Chronic kidney disease, stage 4 (severe); I44.7 Left bundle-branch block, unspecified; I16.0 Hypertensive urgency; Z68.34 Body mass index [BMI] 34.0-34.9, adult; F12.90 Cannabis use, unspecified, uncomplicated; K21.9 Gastro-esophageal reflux disease without esophagitis; F19.10 Other psychoactive substance abuse, uncomplicated; D64.9 Anemia, unspecified; E11.21 Type 2 diabetes mellitus with diabetic nephropathy; F14.90 Cocaine use, unspecified, uncomplicated; E11.22 Type 2 diabetes mellitus with diabetic chronic kidney disease
CPT/HCPCS: 80307; 83036; 83735; 84100; 84443; 87081; 93005; 93306; J0885; J1644; J1815; J3490

== ENCOUNTER 2020-02-04 22:43 | Inpatient (IN) | payer MEDICARE, MEDICAID ==
[~2020-02-04] VITALS: Ht 175.3 cm; Wt 98.5 kg
[~2020-02-04 22:43] MED LIST changes: +CEFD300C3 PO; +INSLAN SQ; +OLME40TA18 PO; +ROSU10TA22 PO
[2020-02-04 23:24] LABS: GLUCOSE,POINT OF CARE 131 MG/DL (70-110)
[2020-02-04] MEDS: NITROGLYCERIN 50 MG/D5% WATER 250 ML IV PRN (23:35)
[2020-02-04 23:38] LABS: INFLUENZA TYPE A NEGATIVE FOR TYPE A (NEGATIVE); INFLUENZA TYPE B POSITIVE FOR TYPE B (NEGATIVE)
[2020-02-04 23:39] LABS: CALCIUM, TOTAL 7.9 mg/dL (8.8-10.5); CREATININE 7.81 mg/dL (0.60-1.30); POTASSIUM 5.9 mmol/L (3.5-5.1)
[2020-02-04 23:43] LABS: INR 1.2 (0.9-1.1)
[2020-02-05] LABS: BASOPHILS % (AUTO) 0.4 % (0.0-2.0); EOSINOPHILS % (AUTO) 0 % (1.0-6.0); HEMATOCRIT 28.6 % (41-53); HEMOGLOBIN 8.9 g/dL (13.5-17.5); LYMPHOCYTES % (AUTO) 5.5 % (22.0-44.0); MEAN CORPUSCULAR HEMOGLOBIN 23.1 pg (26.0-34.0); MEAN CORPUSCULAR HGB CONC 31.2 G/dL (31.0-37.0); MEAN CORPUSCULAR VOLUME 74 fL (80-100); MONOCYTES # (AUTO) 1.2 K/uL (0.1-1.0); NEUTROPHILS # (AUTO) 15.2 K/uL (1.8-7.7); NEUTROPHILS % (AUTO) 87.1 % (40.0-70.0); PLATELET COUNT (AUTO) 298 K/uL (150-450); RED BLOOD CELL COUNT(AUTO) 3.87 MIL/uL (4.50-5.90); RED CELL DISTRIBUTION WIDTH 17.9 % (11.5-14.5)
[2020-02-05] MEDS ORDERED: ZOLPIDEM TARTRATE 5 MG TABLET PO PRN
[2020-02-05] MEDS ORDERED: ACETAMINOPHEN 325 MG TABLET PO PRN
[2020-02-05] MEDS ORDERED: ALBUTEROL SULFATE 5 MG/ML 20 ML NEB SOLN [BULK] NEB ONE
[2020-02-05] MEDS ORDERED: SODIUM POLYSTYRENE SULFONATE 15 GM/60 ML SUSPENSION BOTTLE PO ONE ×2
[2020-02-05] MEDS ORDERED: BISACODYL 10 MG RECTAL RECTAL SUPPOSITORY PR PRN
[2020-02-05] MEDS ORDERED: HYDROCODONE/ACETAMINOPHEN 5-325 MG TABLET PO PRN
[2020-02-05] MEDS ORDERED: MAGNESIUM HYDROXIDE SUSPENSION 30 ML UDCUP PO PRN
[2020-02-05] MEDS ORDERED: INSULIN REGULAR, HUMAN 100 UNITS/ML IVP ONE
[2020-02-05] MEDS ORDERED: SODIUM BICARBONATE [ADULT] 8.4% 50 MEQ/50 ML SYRINGE IVP ONE
[2020-02-05] MEDS ORDERED: ONDANSETRON HCL 4 MG/2 ML VIAL IVP PRN
[2020-02-05] MEDS ORDERED: DEXTROSE 50%-WATER 25 GM/50 ML SYRINGE IVP ONE
[2020-02-05] MEDS ORDERED: FUROSEMIDE 40 MG/4 ML VIAL IVP ONE
[2020-02-05] MEDS ORDERED: MORPHINE SULFATE 2 MG/ML SYRINGE IVP PRN
[2020-02-05 00:03] LABS: ALBUMIN 3.1 g/dL (3.4-5.0); BILIRUBIN,TOTAL 1.5 mg/dL (0.1-1.0); TOTAL PROTEIN, SERUM 8.2 g/dL (6.4-8.2)
[2020-02-05] MEDS ORDERED: AZITHROMYCIN 500 MG/NS 250 ML IV ONE (00:45)
[2020-02-05] MEDS ORDERED: CefTRIAXone 1 GM/DEXTROSE 50 ML IV ONE (00:45)
[2020-02-05 01:02] LABS: GLUCOSE,POINT OF CARE 118 MG/DL (70-110)
[2020-02-05] MEDS: HEPARIN SODIUM,PORCINE 5,000 UNITS/ML VIAL SQ SCH ×2 (02:13→09:24)
[2020-02-05 04:30] LABS: APPEARANCE,URINE CLOUDY (CLEAR); BILIRUBIN,URINE NEGATIVE (NEGATIVE); GLUCOSE, URINE (UA) 100 mg/dL (NEGATIVE); KETONES,URINE NEGATIVE (NEGATIVE); LEUKOCYTE ESTERASE ,URINE NEGATIVE (NEGATIVE); NITRATE,URINE NEGATIVE (NEGATIVE); OCCULT BLOOD,URINE MODERATE (NEGATIVE); PROTEIN,URINE SEE CONFIRM (NEGATIVE); UROBILINOGEN,URINE 0.2 mg/dL (<=1.0)
[2020-02-05 04:38] LABS: BACTERIA,URINE Rare /HPF (None Seen); SQUAMOUS EPITHELIAL CELL,UR Few /LPF (None Seen); SULFOSALICYLIC ACID,URINE 4+ (Negative); WBC,URINE 0-2 /HPF (0-5); YEAST,URINE None Seen /HPF (None Seen)
[2020-02-05] MEDS: NITROGLYCERIN 50 MG/D5% WATER 250 ML IV PRN (05:00)
[2020-02-05 06:00] LABS: POTASSIUM 4.7 mmol/L (3.5-5.1)
[2020-02-05 06:01] LABS: CALCIUM, TOTAL 7.9 mg/dL (8.8-10.5); CREATININE 8.15 mg/dL (0.60-1.30)
[2020-02-05] MEDS: GlipiZIDE 10 MG TABLET PO SCH ×2 (08:00→17:33)
[2020-02-05] MEDS ORDERED: OLMESARTAN MEDOXOMIL 20 MG TABLET PO SCH (09:00)
[2020-02-05] MEDS: DOCUSATE SODIUM 100 MG CAPSULE PO SCH ×2 (09:00→21:00)
[2020-02-05] MEDS: CARVEDILOL 25 MG TABLET PO SCH ×2 (09:24→21:23)
[2020-02-05] MEDS: AmLODIPine BESYLATE 10 MG TABLET PO SCH (09:24)
[2020-02-05] MEDS: PANTOPRAZOLE SODIUM 40 MG DR TABLET PO SCH (09:24)
[2020-02-05] MEDS: HydrALAZINE HCL 50 MG TABLET PO SCH ×3 (09:24→21:23)
[2020-02-05 10:06] LABS: D-DIMER 20.66 mg/L FEU (0.00-0.50)
[2020-02-05 10:18] LABS: C-REACTIVE PROTEIN QUANT 3.37 mg/dL (0.00-0.30)
[2020-02-05] MEDS ORDERED: *CLINICAL-LEVOFLOXACIN IVPB DOSING CLINICAL ONE (10:30)
[2020-02-05] MEDS ORDERED: HEPARIN SODIUM,PORCINE 5,000 UNITS/ML VIAL IVP PRN ×2 (10:30)
[2020-02-05] MEDS ORDERED: LEVOFLOXACIN 750 MG/D5% WATER 150 ML IV ONE (10:45)
[2020-02-05] MEDS: FUROSEMIDE 40 MG/4 ML VIAL IVP SCH ×2 (11:23→21:07)
[2020-02-05] MEDS ORDERED: DEXTROSE 50%-WATER 25 GM/50 ML SYRINGE IVP PRN (11:45)
[2020-02-05 12:25] LABS: GLUCOSE,POINT OF CARE 67 MG/DL (70-110)
[2020-02-05 13:10] LABS: GLUCOSE,POINT OF CARE 103 MG/DL (70-110)
[2020-02-05 13:27] LABS: ABG A-A DIFF O2 115.6 mmHg (10-20.0); ABG BASE EXCESS -9.4 mmol/L (-2.0-3.0); ABG CARBOXYHEMOGLOBIN 0.4 % (0.0-1.5); ABG HCO3 17.4 mmol/L (22.0-26.0); ABG METHEMOGLOBIN 0.4 % (0.0-1.5); ABG OXYGEN CONTENT 11.5 mL/dL (15.0-23.0); ABG OXYGEN SATURATION 98.3 % (95.0-98.0); ABG OXYHEMOGLOBIN 97.5 % (94.0-100.0); ABG PCO2 34 mmHg (35-45); ABG PH 7.313 (7.35-7.450); ABG TOTAL HEMOGLOBIN 8.2 G/dL (12.0-18.0); PO2, ARTERIAL BG 130.6 mmHg (79.0-87.0); SOURCE, BLOOD GAS ARTERIAL; TEMPERATURE, FAHRENHEIT, BG 98.6 FAHREN (96.0-98.6)
[2020-02-05 13:30] LABS: O2 DEVICE,BLOOD GAS BIPAP (ROOM AIR); SITE, BLOOD GAS RT RADIAL; SPONTANEOUS VT, BG 520 ml
[2020-02-05 19:20] LABS: GLUCOSE,POINT OF CARE 54 MG/DL (70-110)
[2020-02-05 19:20] LABS: GLUCOSE,POINT OF CARE 116 MG/DL (70-110)
[2020-02-05] MEDS: INSULIN LISPRO 100 UNITS/ML SQ PRN (20:30)
[2020-02-05 20:38] LABS: GLUCOSE,POINT OF CARE 190 MG/DL (70-110)
[2020-02-05] MEDS: INSULIN GLARGINE,HUM.REC.ANLOG 100 UNITS/ML SQ SCH (21:07)
[2020-02-05] MEDS: ROSUVASTATIN CALCIUM 10 MG TABLET PO SCH (21:23)
[2020-02-06 05:30] LABS: BASOPHILS % (AUTO) 0.9 % (0.0-2.0); EOSINOPHILS % (AUTO) 1.4 % (1.0-6.0); HEMATOCRIT 24.7 % (41-53); HEMOGLOBIN 7.7 g/dL (13.5-17.5); LYMPHOCYTES # (AUTO) 1.3 K/uL (1.0-4.8); LYMPHOCYTES % (AUTO) 11.3 % (22.0-44.0); MEAN CORPUSCULAR HEMOGLOBIN 23.2 pg (26.0-34.0); MEAN CORPUSCULAR HGB CONC 31.3 G/dL (31.0-37.0); MEAN CORPUSCULAR VOLUME 74 fL (80-100); MONOCYTES # (AUTO) 0.8 K/uL (0.1-1.0); MONOCYTES % (AUTO) 7.5 % (2.0-9.0); NEUTROPHILS # (AUTO) 8.8 K/uL (1.8-7.7); NEUTROPHILS % (AUTO) 78.9 % (40.0-70.0); PLATELET COUNT (AUTO) 246 K/uL (150-450); RED BLOOD CELL COUNT(AUTO) 3.33 MIL/uL (4.50-5.90); RED CELL DISTRIBUTION WIDTH 18.4 % (11.5-14.5)
[2020-02-06 05:50] LABS: D-DIMER 18.53 mg/L FEU (0.00-0.50)
[2020-02-06 06:17] LABS: GLUCOSE,POINT OF CARE 128 MG/DL (70-110)
[2020-02-06 06:34] LABS: C-REACTIVE PROTEIN QUANT 3.42 mg/dL (0.00-0.30); CALCIUM, TOTAL 7.4 mg/dL (8.8-10.5); CREATININE 7.44 mg/dL (0.60-1.30); POTASSIUM 3.8 mmol/L (3.5-5.1)
[2020-02-06] MEDS: GlipiZIDE 10 MG TABLET PO SCH ×2 (06:51→16:30)
[2020-02-06] MEDS: DOCUSATE SODIUM 100 MG CAPSULE PO SCH ×3 (09:00→21:00)
[2020-02-06] MEDS: PANTOPRAZOLE SODIUM 40 MG DR TABLET PO SCH (09:10)
[2020-02-06] MEDS: FUROSEMIDE 40 MG/4 ML VIAL IVP SCH ×2 (09:10→20:51)
[2020-02-06] MEDS: HydrALAZINE HCL 50 MG TABLET PO SCH ×4 (09:10→21:00)
[2020-02-06] MEDS: AmLODIPine BESYLATE 10 MG TABLET PO SCH (09:11)
[2020-02-06] MEDS: CARVEDILOL 25 MG TABLET PO SCH ×2 (09:11→21:10)
[2020-02-06 12:16] LABS: GLUCOSE,POINT OF CARE 211 MG/DL (70-110)
[2020-02-06] MEDS ORDERED: LABETALOL HCL 5 MG/ML 20 ML VIAL IVP PRN (14:30)
[2020-02-06] MEDS: OSELTAMIVIR PHOSPHATE 30 MG CAPSULE PO SCH (14:48)
[2020-02-06 17:00] LABS: GLUCOSE,POINT OF CARE 82 MG/DL (70-110)
[2020-02-06] MEDS: HEPARIN SODIUM 25000 UNITS/D5W 250 ML IV PRN (19:00)
[2020-02-06 19:42] LABS: GLUCOSE,POINT OF CARE 103 MG/DL (70-110)
[2020-02-06] MEDS: INSULIN GLARGINE,HUM.REC.ANLOG 100 UNITS/ML SQ SCH (20:52)
[2020-02-06] MEDS: ROSUVASTATIN CALCIUM 10 MG TABLET PO SCH (21:10)
[2020-02-06 23:27] LABS: GLUCOSE,POINT OF CARE 99 MG/DL (70-110)
[2020-02-07 06:09] LABS: GLUCOSE,POINT OF CARE 94 MG/DL (70-110)
[2020-02-07] MEDS: GlipiZIDE 10 MG TABLET PO SCH ×2 (06:35→21:19)
[2020-02-07 07:04] LABS: BAND NEUTROPHILS % (MANUAL) 0 % (0-5)
[2020-02-07 07:09] LABS: HEMATOCRIT 24.5 % (41-53); HEMOGLOBIN 7.7 g/dL (13.5-17.5); MEAN CORPUSCULAR HEMOGLOBIN 23.3 pg (26.0-34.0); MEAN CORPUSCULAR HGB CONC 31.6 G/dL (31.0-37.0); MEAN CORPUSCULAR VOLUME 74 fL (80-100); PLATELET COUNT (AUTO) 248 K/uL (150-450); RED BLOOD CELL COUNT(AUTO) 3.31 MIL/uL (4.50-5.90)
[2020-02-07 07:55] LABS: C-REACTIVE PROTEIN QUANT 2.63 mg/dL (0.00-0.30); CALCIUM, TOTAL 7.4 mg/dL (8.8-10.5); CREATININE 7.45 mg/dL (0.60-1.30)
[2020-02-07 08:00] LABS: D-DIMER 10.67 mg/L FEU (0.00-0.50); INR 1.1 (0.9-1.1); PROTHROMBIN TIME 11.4 SEC (9.4-11.6)
[2020-02-07 08:17] LABS: % IRON SATURATION 11.3 % (30-44)
[2020-02-07] MEDS: FUROSEMIDE 40 MG/4 ML VIAL IVP SCH ×2 (09:25→21:21)
[2020-02-07] MEDS: CARVEDILOL 25 MG TABLET PO SCH ×2 (09:25→22:12)
[2020-02-07] MEDS: PANTOPRAZOLE SODIUM 40 MG DR TABLET PO SCH (09:26)
[2020-02-07] MEDS: AmLODIPine BESYLATE 10 MG TABLET PO SCH (09:26)
[2020-02-07] MEDS: HEPARIN SODIUM 25000 UNITS/D5W 250 ML IV PRN (09:43)
[2020-02-07 09:58] LABS: LYMPHOCYTES % (MANUAL) 23 % (22-44); MONOCYTES % (MANUAL) 2 % (2-9); SEGMENTED NEUTROPHILS % 75 % (40-70)
[2020-02-07 10:43] LABS: ABG CARBOXYHEMOGLOBIN 0.5 % (0.0-1.5); SOURCE, BLOOD GAS ARTERIAL; TEMPERATURE, FAHRENHEIT, BG 98.6 FAHREN (96.0-98.6)
[2020-02-07 10:55] LABS: ABG A-A DIFF O2 68.3 mmHg (10-20.0); ABG BASE EXCESS -7.7 mmol/L (-2.0-3.0); ABG HCO3 18.8 mmol/L (22.0-26.0); ABG METHEMOGLOBIN 0.4 % (0.0-1.5); ABG OXYGEN CONTENT 11.4 mL/dL (15.0-23.0); ABG OXYGEN SATURATION 97.2 % (95.0-98.0); ABG OXYHEMOGLOBIN 96.3 % (94.0-100.0); ABG PCO2 31 mmHg (35-45); ABG PH 7.375 (7.35-7.450); ABG TOTAL HEMOGLOBIN 8.3 G/dL (12.0-18.0); PO2, ARTERIAL BG 95.2 mmHg (79.0-87.0)
[2020-02-07 10:56] LABS: O2 DEVICE,BLOOD GAS CANNULA (ROOM AIR); SITE, BLOOD GAS RT RADIAL
[2020-02-07] MEDS: LEVOFLOXACIN 500 MG/D5% WATER 100 ML IV SCH (11:07)
[2020-02-07 12:16] VITALS: BP 142/71
[2020-02-07 15:26] VITALS: BP 119/55
[2020-02-07 15:28] VITALS: BP 138/72
[2020-02-07] MEDS: HydrALAZINE HCL 50 MG TABLET PO SCH ×2 (17:32→21:00)
[2020-02-07 17:58] LABS: GLUCOMETER DEV NAME(LOC) 5N.1; GLUCOSE,POINT OF CARE 73 MG/DL (70-110)
[2020-02-07 17:58] LABS: GLUCOMETER DEV NAME(LOC) 5N.1; GLUCOSE,POINT OF CARE 91 MG/DL (70-110)
[2020-02-07 20:04] VITALS: BP 132/68
[2020-02-07] MEDS: INSULIN GLARGINE,HUM.REC.ANLOG 100 UNITS/ML SQ SCH (21:00)
[2020-02-07] MEDS: DOCUSATE SODIUM 100 MG CAPSULE PO SCH (21:21)
[2020-02-07] MEDS: ROSUVASTATIN CALCIUM 10 MG TABLET PO SCH (22:12)
[2020-02-07 23:35] VITALS: BP 139/69
[2020-02-08 00:08] LABS: GLUCOMETER DEV NAME(LOC) 5S.1; GLUCOSE,POINT OF CARE 154 MG/DL (70-110)
[2020-02-08 04:28] VITALS: BP 135/95
[2020-02-08] MEDS: GlipiZIDE 10 MG TABLET PO SCH ×2 (06:30→17:07)
[2020-02-08 07:30] LABS: BASOPHILS % (AUTO) 1.3 % (0.0-2.0); EOSINOPHILS % (AUTO) 1.9 % (1.0-6.0); HEMATOCRIT 24.4 % (41-53); HEMOGLOBIN 7.8 g/dL (13.5-17.5); LYMPHOCYTES # (AUTO) 1.3 K/uL (1.0-4.8); LYMPHOCYTES % (AUTO) 13.9 % (22.0-44.0); MEAN CORPUSCULAR HEMOGLOBIN 23.8 pg (26.0-34.0); MEAN CORPUSCULAR VOLUME 74 fL (80-100); MONOCYTES % (AUTO) 10.7 % (2.0-9.0); NEUTROPHILS # (AUTO) 6.6 K/uL (1.8-7.7); NEUTROPHILS % (AUTO) 72.2 % (40.0-70.0); PLATELET COUNT (AUTO) 240 K/uL (150-450); RED BLOOD CELL COUNT(AUTO) 3.29 MIL/uL (4.50-5.90); RED CELL DISTRIBUTION WIDTH 18.5 % (11.5-14.5)
[2020-02-08 07:45] LABS: D-DIMER 3.73 mg/L FEU (0.00-0.50)
[2020-02-08 08:10] VITALS: BP 126/66
[2020-02-08 08:26] LABS: C-REACTIVE PROTEIN QUANT 2.37 mg/dL (0.00-0.30); CALCIUM, TOTAL 7.2 mg/dL (8.8-10.5); CREATININE 7.57 mg/dL (0.60-1.30); POTASSIUM 3.9 mmol/L (3.5-5.1)
[2020-02-08] MEDS: DOCUSATE SODIUM 100 MG CAPSULE PO SCH ×2 (09:00→20:40)
[2020-02-08] MEDS: HydrALAZINE HCL 50 MG TABLET PO SCH ×3 (09:00→20:40)
[2020-02-08] MEDS: FUROSEMIDE 40 MG/4 ML VIAL IVP SCH ×2 (09:06→20:41)
[2020-02-08] MEDS: CARVEDILOL 25 MG TABLET PO SCH ×2 (09:06→20:40)
[2020-02-08] MEDS: PANTOPRAZOLE SODIUM 40 MG DR TABLET PO SCH (09:07)
[2020-02-08] MEDS: AmLODIPine BESYLATE 10 MG TABLET PO SCH (09:07)
[2020-02-08] MEDS: OSELTAMIVIR PHOSPHATE 30 MG CAPSULE PO SCH (09:08)
[2020-02-08 11:08] VITALS: BP 120/62
[2020-02-08] MEDS ORDERED: SODIUM CHLORIDE 0.9% 250 ML IV ONE (14:21)
[2020-02-08] MEDS: SOD FERRIC GLUC COMPLX/SUCROSE 125 MG in SODIUM CHLORIDE 0.9% 100 ML IV SCH (14:23)
[2020-02-08 16:12] VITALS: BP 113/61
[2020-02-08 16:53] LABS: CREATININE,SERUM FOR CRCL 7.57 mg/dL (0.60-1.30); CREATININE,URINE 71.9 mg/dL (30.0-125.0)
[2020-02-08] MEDS: HEPARIN SODIUM,PORCINE 5,000 UNITS/ML VIAL SQ SCH ×2 (17:07→23:35)
[2020-02-08 20:22] VITALS: BP 129/70
[2020-02-08] MEDS: ROSUVASTATIN CALCIUM 10 MG TABLET PO SCH (20:40)
[2020-02-08] MEDS: INSULIN LISPRO 100 UNITS/ML SQ PRN (20:42)
[2020-02-08] MEDS: INSULIN GLARGINE,HUM.REC.ANLOG 100 UNITS/ML SQ SCH (21:00)
[2020-02-08 23:35] LABS: GLUCOMETER DEV NAME(LOC) 5N.1; GLUCOSE,POINT OF CARE 132 MG/DL (70-110)
[2020-02-08 23:35] LABS: GLUCOMETER DEV NAME(LOC) 5S.1; GLUCOSE,POINT OF CARE 154 MG/DL (70-110)
[2020-02-08 23:35] LABS: GLUCOMETER DEV NAME(LOC) 5N.1; GLUCOSE,POINT OF CARE 115 MG/DL (70-110)
[2020-02-08 23:35] LABS: GLUCOMETER DEV NAME(LOC) 5N.1; GLUCOSE,POINT OF CARE 131 MG/DL (70-110)
[2020-02-09 00:07] VITALS: BP 131/62
[2020-02-09 04:32] VITALS: BP 125/82
[2020-02-09] MEDS: GlipiZIDE 10 MG TABLET PO SCH (06:17)
[2020-02-09 07:42] VITALS: BP 144/72
[2020-02-09 07:55] LABS: C-REACTIVE PROTEIN QUANT 1.83 mg/dL (0.00-0.30); TOTAL PROTEIN, SERUM 6.9 g/dL (6.4-8.2)
[2020-02-09] MEDS: HEPARIN SODIUM,PORCINE 5,000 UNITS/ML VIAL SQ SCH (08:00)
[2020-02-09] MEDS: CARVEDILOL 25 MG TABLET PO SCH (08:08)
[2020-02-09] MEDS: FUROSEMIDE 40 MG/4 ML VIAL IVP SCH (08:16)
[2020-02-09] MEDS: AmLODIPine BESYLATE 10 MG TABLET PO SCH (08:16)
[2020-02-09] MEDS: PANTOPRAZOLE SODIUM 40 MG DR TABLET PO SCH (08:16)
[2020-02-09] MEDS: DOCUSATE SODIUM 100 MG CAPSULE PO SCH (08:16)
[2020-02-09] MEDS: HydrALAZINE HCL 50 MG TABLET PO SCH (08:23)
[2020-02-09] MEDS ORDERED: EPOETIN ALFA 10,000 UNITS/ML VIAL SQ SCH (09:00)
[2020-02-09] MEDS: LEVOFLOXACIN 500 MG/D5% WATER 100 ML IV SCH (11:29)
[2020-02-09 11:44] VITALS: BP 124/57
[2020-02-09] MEDS ORDERED: LEVO750T68 PO (13:12)
[2020-02-09] MEDS ORDERED: OSEL30CA PO (13:12)
[2020-02-09] MEDS: SOD FERRIC GLUC COMPLX/SUCROSE 125 MG in SODIUM CHLORIDE 0.9% 100 ML IV SCH (14:00)
[2020-02-09 18:15] LABS: GLUCOMETER DEV NAME(LOC) 5S.1; GLUCOSE,POINT OF CARE 77 MG/DL (70-110)
[2020-02-09 18:15] LABS: GLUCOMETER DEV NAME(LOC) 5S.1; GLUCOSE,POINT OF CARE 134 MG/DL (70-110)
== END 2020-02-09 14:30 | disposition home health service (06) | DRG 291 ==
LOC: EMS 22:44 → ICUN 23:54 → 5S 23:54
PROVIDERS: ADMIT Internal Medicine; ATTEND Internal Medicine
PROC: 5A09357 Assistance with Respiratory Ventilation, Less than 24 Consecutive Hours, Continuous Positive Airway Pressure (ICD-10-PCS; principal; 2020-02-04)
PROC: 5A09357 Assistance with Respiratory Ventilation, Less than 24 Consecutive Hours, Continuous Positive Airway Pressure (ICD-10-PCS; 2020-02-05)
DX: I13.2 Hypertensive heart and chronic kidney disease with heart failure and with stage 5 chronic kidney disease, or end stage renal disease (principal); J96.01 Acute respiratory failure with hypoxia; I50.31 Acute diastolic (congestive) heart failure; J11.00 Influenza due to unidentified influenza virus with unspecified type of pneumonia; N18.5 Chronic kidney disease, stage 5; N17.9 Acute kidney failure, unspecified; J44.0 Chronic obstructive pulmonary disease with (acute) lower respiratory infection; N25.81 Secondary hyperparathyroidism of renal origin; E11.22 Type 2 diabetes mellitus with diabetic chronic kidney disease; I16.0 Hypertensive urgency; E87.5 Hyperkalemia; Z20.828 Contact with and (suspected) exposure to other viral communicable diseases; D63.1 Anemia in chronic kidney disease; E78.5 Hyperlipidemia, unspecified; Z79.4 Long term (current) use of insulin; E61.1 Iron deficiency
CPT/HCPCS: 36600; 76604; 81050; 82575; 82728; 82805; 83540; 83550; 83615; 83970; 84155; 84156; 84166; 84300; 84540; 85007; 85379; 85384; 86140; 87804; 93005; 97116; 97162; 97530; 99291; G0378; J0456; J0696; J0885; J1644; J1815; J1940; J1956; J2916; J3490; J7050

== ENCOUNTER 2020-05-14 21:47 | Inpatient (IN) | payer MEDICARE, MEDICAID ==
[~2020-05-14] VITALS: Ht 177.8 cm; Wt 105.9 kg
[~2020-05-14 21:47] MED LIST changes: +AMLO-258 PO; -AMLO10TA7 PO; -CEFD300C3 PO; +LEVO750T68 PO; -OLME40TA18 PO; +OSEL30CA PO
[2020-05-14] MEDS ORDERED: BUME1TAB34 PO (22:15)
[2020-05-14] MEDS ORDERED: HYDR-2924 PO (22:15)
[2020-05-14] MEDS ORDERED: ZARO5 PO (22:15)
[2020-05-14] MEDS ORDERED: FUROSEMIDE 40 MG/4 ML VIAL IVP ONE (22:15)
[2020-05-14] MEDS ORDERED: ASPIRIN 325 MG TABLET PO ONE (22:15)
[2020-05-14] MEDS ORDERED: ASPI-728 PO (22:15)
[2020-05-14] MEDS ORDERED: NITROGLYCERIN 2% (1 GM=INCH) PACKET TP ONE (22:15)
[2020-05-14] MEDS ORDERED: ROSU10TA22 PO (22:15)
[2020-05-14] MEDS ORDERED: LINA5TAB PO (22:15)
[2020-05-14 22:27] LABS: BASOPHILS % (AUTO) 1.1 % (0.0-2.0); EOSINOPHILS % (AUTO) 1.5 % (1.0-6.0); HEMATOCRIT 30.7 % (41-53); HEMOGLOBIN 9.4 g/dL (13.5-17.5); LYMPHOCYTES # (AUTO) 2.8 K/uL (1.0-4.8); LYMPHOCYTES % (AUTO) 18.4 % (22.0-44.0); MEAN CORPUSCULAR HEMOGLOBIN 22.3 pg (26.0-34.0); MEAN CORPUSCULAR HGB CONC 30.5 G/dL (31.0-37.0); MEAN CORPUSCULAR VOLUME 73 fL (80-100); MONOCYTES # (AUTO) 1.1 K/uL (0.1-1.0); MONOCYTES % (AUTO) 6.9 % (2.0-9.0); NEUTROPHILS % (AUTO) 72.1 % (40.0-70.0); PLATELET COUNT (AUTO) 233 K/uL (150-450); RED CELL DISTRIBUTION WIDTH 16.4 % (11.5-14.5)
[2020-05-14 22:47] LABS: ANION GAP 10 mmol/L (8-16); CALCIUM, TOTAL 7.5 mg/dL (8.8-10.5); CARBON DIOXIDE 23 mmol/L (22-29); CHLORIDE 105 mmol/L (98-107); CREATININE 8.63 mg/dL (0.60-1.30); GLOMERULAR FILTR. RATE CALC 7 mL/min (>60); GLUCOSE,RANDOM 281 mg/dL (70-110); POTASSIUM 4.2 mmol/L (3.5-5.1); SODIUM SERUM 138 mmol/L (136-145); UREA NITROGEN, BLOOD 86 mg/dL (7-18)
[2020-05-14 22:52] LABS: ALANINE AMINOTRANSFERASE 22 U/L (12-78); ALBUMIN 3.8 g/dL (3.4-5.0); ALKALINE PHOSPHATASE 99 U/L (46-116); ASPARTATE AMINOTRANSFERASE 15 U/L (15-37); BILIRUBIN,TOTAL 0.7 mg/dL (0.1-1.0); LIPASE 169 U/L (73-393)
[2020-05-14 23:00] LABS: B-TYPE NATRIURETIC PEPTIDE 1410 pg/mL (0-100)
[2020-05-14] MEDS: OXYGEN THERAPY IH SCH (23:09)
[2020-05-14] MEDS ORDERED: DEXTROSE 50%-WATER 25 GM/50 ML SYRINGE IVP PRN (23:15)
[2020-05-14] MEDS ORDERED: INSULIN LISPRO 100 UNITS/ML SQ PRN (23:15)
[2020-05-14 23:19] LABS: INFLUENZA TYPE A NEGATIVE FOR TYPE A (NEGATIVE); INFLUENZA TYPE B NEGATIVE FOR TYPE B (NEGATIVE)
[2020-05-14] MEDS ORDERED: CloNIDine HCL 0.1 MG TABLET PO PRN (23:30)
[2020-05-14] MEDS ORDERED: BISACODYL 10 MG RECTAL RECTAL SUPPOSITORY PR PRN (23:30)
[2020-05-14] MEDS ORDERED: ACETAMINOPHEN 325 MG TABLET PO PRN ×2 (23:30→23:45)
[2020-05-14] MEDS ORDERED: OxyCODONE HCL/ACETAMINOPHEN 5-325 MG TABLET PO PRN (23:30)
[2020-05-14 23:39] LABS: LACTIC ACID 3.5 mmol/L (0.4-2.0)
[2020-05-14] MEDS ORDERED: ONDANSETRON HCL 4 MG/2 ML VIAL IVP PRN (23:45)
[2020-05-14] MEDS ORDERED: 0.9% SODIUM CHLORIDE 10 ML SYRINGE IVP PRN (23:45)
[2020-05-15 00:33] LABS: APPEARANCE,URINE CLEAR (CLEAR); BILIRUBIN,URINE NEGATIVE (NEGATIVE); GLUCOSE, URINE (UA) 100 mg/dL (NEGATIVE); KETONES,URINE NEGATIVE (NEGATIVE); LEUKOCYTE ESTERASE ,URINE NEGATIVE (NEGATIVE); NITRATE,URINE NEGATIVE (NEGATIVE); OCCULT BLOOD,URINE SMALL (NEGATIVE); PROTEIN,URINE SEE CONFIRM (NEGATIVE); UROBILINOGEN,URINE 0.2 mg/dL (<=1.0)
[2020-05-15 00:39] LABS: BACTERIA,URINE None Seen /HPF (None Seen); SQUAMOUS EPITHELIAL CELL,UR Rare /LPF (None Seen)
[2020-05-15 00:40] LABS: AMPHET/METH SCREEN,URINE NEGATIVE (NEGATIVE); BARBITURATE SCREEN, URINE NEGATIVE (NEGATIVE); BENZODIAZEPINES SCREEN,URINE NEGATIVE (NEGATIVE); CANNABINOID SCREEN,URINE NEGATIVE (NEGATIVE); COCAINE SCREEN,URINE NEGATIVE (NEGATIVE); METHADONE SCREEN, URINE NEGATIVE (NEGATIVE); OPIATE SCREEN,URINE NEGATIVE (NEGATIVE); SULFOSALICYLIC ACID,URINE 3+ (Negative)
[2020-05-15 00:42] LABS: PHENCYCLIDINE SCREEN,URINE POSITIVE (NEGATIVE)
[2020-05-15] MEDS: AmLODIPine BESYLATE 10 MG TABLET PO SCH ×2 (00:48→20:15)
[2020-05-15 01:27] VITALS: BP 146/75
[2020-05-15 05:07] VITALS: BP 122/62
[2020-05-15 07:35] VITALS: BP 141/69
[2020-05-15] MEDS: OXYGEN THERAPY IH SCH ×2 (08:42→20:23)
[2020-05-15] MEDS: DOCUSATE SODIUM 100 MG CAPSULE PO SCH ×2 (08:42→20:15)
[2020-05-15] MEDS: HEPARIN SODIUM,PORCINE 5,000 UNITS/ML VIAL SQ SCH ×2 (08:42→20:16)
[2020-05-15] MEDS ORDERED: ASPIRIN 81 MG CHEWABLE TABLET PO SCH (09:00)
[2020-05-15] MEDS ORDERED: FAMOTIDINE 20 MG TABLET PO SCH (09:00)
[2020-05-15] MEDS ORDERED: METOLAZONE 5 MG TABLET PO SCH (10:45)
[2020-05-15] MEDS ORDERED: ISOSORBIDE MONONITRATE 30 MG ER TABLET PO SCH (10:45)
[2020-05-15 11:03] VITALS: BP 145/70
[2020-05-15 12:36] LABS: GLUCOMETER DEV NAME(LOC) 5N.1; GLUCOSE,POINT OF CARE 203 MG/DL (70-110)
[2020-05-15] MEDS: BUMETANIDE 0.25 MG/ML 4 ML VIAL IVP SCH ×2 (15:31→20:16)
[2020-05-15 15:52] VITALS: BP 168/89
[2020-05-15 17:39] LABS: GLUCOMETER DEV NAME(LOC) 5S.1; GLUCOSE,POINT OF CARE 109 MG/DL (70-110)
[2020-05-15 20:11] VITALS: BP 177/80
[2020-05-15 20:43] LABS: GLUCOMETER DEV NAME(LOC) 5N.3; GLUCOSE,POINT OF CARE 135 MG/DL (70-110)
[2020-05-15] MEDS ORDERED: ROSUVASTATIN CALCIUM 10 MG TABLET PO SCH (21:00)
== END 2020-05-15 20:55 | disposition short-term general hospital (02) | DRG 291 ==
LOC: EMS 21:49 → 5N 23:20
PROVIDERS: ADMIT Internal Medicine; ATTEND Internal Medicine
DX: I13.2 Hypertensive heart and chronic kidney disease with heart failure and with stage 5 chronic kidney disease, or end stage renal disease (principal); I50.33 Acute on chronic diastolic (congestive) heart failure; N18.6 End stage renal disease; E11.22 Type 2 diabetes mellitus with diabetic chronic kidney disease; D63.1 Anemia in chronic kidney disease; F14.90 Cocaine use, unspecified, uncomplicated; Z20.828 Contact with and (suspected) exposure to other viral communicable diseases; I16.0 Hypertensive urgency; F19.10 Other psychoactive substance abuse, uncomplicated; E11.65 Type 2 diabetes mellitus with hyperglycemia; Z79.899 Other long term (current) drug therapy; Z79.82 Long term (current) use of aspirin; Z79.4 Long term (current) use of insulin
CPT/HCPCS: 83605; 83735; 87040; 87426; 87804; 93005; 94660; 99291; G0480; J1644; J1940; J3490; 36415-L1; 36415-TC; 71045-TC

== ENCOUNTER 2020-08-07 15:36 | Emergency (ER) | payer MEDICARE, MEDICAID ==
[~2020-08-07] VITALS: Ht 175.3 cm; Wt 95.5 kg
[~2020-08-07 15:36] MED LIST changes: +AMOX1TAB16 PO; +ASPI-728 PO; +BUME1TAB34 PO; +EPOE10003 SQ; +FAMO20 IVP; -FURO-152 PO; -GLIP10 PO; -HYDR-4174 PO; +ISOS60TA4 PO; -LEVO750T68 PO; +LINA5TAB PO; -OSEL30CA PO; +PHOSLOC PO; +ZARO5 PO
[2020-08-07] MEDS ORDERED: 0.9% SODIUM CHLORIDE 10 ML SYRINGE IVP PRN (16:15)
[2020-08-07] MEDS ORDERED: ACETAMINOPHEN 325 MG TABLET PO ONE (16:30)
[2020-08-07 17:40] LABS: BASOPHILS % (AUTO) 1.5 % (0.0-2.0); EOSINOPHILS % (AUTO) 1.7 % (1.0-6.0); HEMOGLOBIN 11.5 g/dL (13.5-17.5); LYMPHOCYTES # (AUTO) 0.9 K/uL (1.0-4.8); LYMPHOCYTES % (AUTO) 10.1 % (22.0-44.0); MEAN CORPUSCULAR HEMOGLOBIN 23.4 pg (26.0-34.0); MEAN CORPUSCULAR VOLUME 75 fL (80-100); MONOCYTES # (AUTO) 1.6 K/uL (0.1-1.0); MONOCYTES % (AUTO) 17.5 % (2.0-9.0); NEUTROPHILS # (AUTO) 6.3 K/uL (1.8-7.7); NEUTROPHILS % (AUTO) 69.2 % (40.0-70.0); PLATELET COUNT (AUTO) 230 K/uL (150-450); RED BLOOD CELL COUNT(AUTO) 4.91 MIL/uL (4.50-5.90); RED CELL DISTRIBUTION WIDTH 17.3 % (11.5-14.5)
[2020-08-07 17:55] LABS: CALCIUM, TOTAL 8.9 mg/dL (8.8-10.5); CREATININE 8.36 mg/dL (0.60-1.30); POTASSIUM 4.9 mmol/L (3.5-5.1)
[2020-08-07 17:58] LABS: COVID AG,FIA SOURCE NASOPHARYNGEAL
[2020-08-07 18:15] LABS: ALBUMIN 4.1 g/dL (3.4-5.0); BILIRUBIN,TOTAL 0.4 mg/dL (0.1-1.0); C-REACTIVE PROTEIN QUANT 1.76 mg/dL (0.00-0.30); TOTAL PROTEIN, SERUM 9.2 g/dL (6.4-8.2)
[2020-08-07 18:53] LABS: INFLUENZA TYPE A NEGATIVE FOR TYPE A (NEGATIVE); INFLUENZA TYPE B NEGATIVE FOR TYPE B (NEGATIVE)
[2020-08-07 18:55] VITALS: BP 120/70
== END 2020-08-07 20:48 | disposition home or self-care (01) ==
LOC: EMS 15:36
DX: U07.1 COVID-19 (principal); M79.10 Myalgia, unspecified site; R50.9 Fever, unspecified; I13.2 Hypertensive heart and chronic kidney disease with heart failure and with stage 5 chronic kidney disease, or end stage renal disease; E11.22 Type 2 diabetes mellitus with diabetic chronic kidney disease; N18.6 End stage renal disease; I50.9 Heart failure, unspecified; F12.90 Cannabis use, unspecified, uncomplicated; Z99.2 Dependence on renal dialysis; Z79.82 Long term (current) use of aspirin; Z79.4 Long term (current) use of insulin
CPT/HCPCS: 36415; 71045; 80053; 82728; 83880; 84484; 85025; 85610; 85730; 86140; 87040; 87426; 87804; 93005; 99285; U0003

== ENCOUNTER 2020-08-09 08:49 | Inpatient (IN) | payer MEDICARE, MEDICAID ==
[~2020-08-09] VITALS: Ht 182.9 cm; Wt 93.3 kg
[2020-08-09] MEDS ORDERED: OxyCODONE HCL/ACETAMINOPHEN 5-325 MG TABLET PO PRN (12:30)
[2020-08-09] MEDS ORDERED: ONDANSETRON HCL 4 MG/2 ML VIAL IVP PRN (12:45)
[2020-08-09] MEDS ORDERED: 0.9% SODIUM CHLORIDE 10 ML SYRINGE IVP PRN (12:45)
[2020-08-09] MEDS ORDERED: ACETAMINOPHEN 325 MG TABLET PO PRN (12:45)
[2020-08-09 13:07] LABS: CALCIUM, TOTAL 8.3 mg/dL (8.8-10.5); CREATININE 14.49 mg/dL (0.60-1.30); POTASSIUM 4.1 mmol/L (3.5-5.1)
[2020-08-09 13:10] LABS: BASOPHILS % (AUTO) 0.6 % (0.0-2.0); EOSINOPHILS % (AUTO) 0 % (1.0-6.0); HEMOGLOBIN 11.4 g/dL (13.5-17.5); LYMPHOCYTES # (AUTO) 1.9 K/uL (1.0-4.8); LYMPHOCYTES % (AUTO) 16.9 % (22.0-44.0); MEAN CORPUSCULAR HEMOGLOBIN 23.2 pg (26.0-34.0); MEAN CORPUSCULAR HGB CONC 30.7 G/dL (31.0-37.0); MEAN CORPUSCULAR VOLUME 76 fL (80-100); MONOCYTES % (AUTO) 17.9 % (2.0-9.0); NEUTROPHILS # (AUTO) 7.2 K/uL (1.8-7.7); NEUTROPHILS % (AUTO) 64.6 % (40.0-70.0); PLATELET COUNT (AUTO) 187 K/uL (150-450); RED BLOOD CELL COUNT(AUTO) 4.89 MIL/uL (4.50-5.90); RED CELL DISTRIBUTION WIDTH 17.4 % (11.5-14.5)
[2020-08-09 13:25] LABS: ALBUMIN 3.5 g/dL (3.4-5.0); BILIRUBIN,TOTAL 0.4 mg/dL (0.1-1.0); TOTAL PROTEIN, SERUM 8.8 g/dL (6.4-8.2)
[2020-08-09] MEDS ORDERED: DEXTROSE 50%-WATER 25 GM/50 ML SYRINGE IVP ONE (20:45)
[2020-08-09] MEDS: DOCUSATE SODIUM 100 MG CAPSULE PO SCH (21:29)
[2020-08-09] MEDS: HEPARIN SODIUM,PORCINE 5,000 UNITS/ML VIAL SQ SCH (21:30)
[2020-08-09 22:39] LABS: GLUCOSE,POINT OF CARE 180 MG/DL (70-110)
[2020-08-09 23:05] LABS: GLUCOSE,POINT OF CARE 157 MG/DL (70-110)
[2020-08-10] VITALS (9 sets, daily range): BP systolic 106–139; BP diastolic 55–69
[2020-08-10 00:31] LABS: GLUCOSE,POINT OF CARE 115 MG/DL (70-110)
[2020-08-10 02:10] LABS: GLUCOSE,POINT OF CARE 82 MG/DL (70-110)
[2020-08-10 06:14] LABS: GLUCOSE,POINT OF CARE 69 MG/DL (70-110)
[2020-08-10 06:35] LABS: GLUCOSE,POINT OF CARE 88 MG/DL (70-110)
[2020-08-10 07:05] LABS: BASOPHILS % (AUTO) 0.9 % (0.0-2.0); EOSINOPHILS % (AUTO) 0.6 % (1.0-6.0); HEMATOCRIT 39.1 % (41-53); HEMOGLOBIN 12.5 g/dL (13.5-17.5); LYMPHOCYTES # (AUTO) 1.2 K/uL (1.0-4.8); LYMPHOCYTES % (AUTO) 12.5 % (22.0-44.0); MEAN CORPUSCULAR HEMOGLOBIN 23.6 pg (26.0-34.0); MEAN CORPUSCULAR HGB CONC 31.9 G/dL (31.0-37.0); MEAN CORPUSCULAR VOLUME 74 fL (80-100); MONOCYTES % (AUTO) 10.8 % (2.0-9.0); NEUTROPHILS # (AUTO) 6.9 K/uL (1.8-7.7); NEUTROPHILS % (AUTO) 75.2 % (40.0-70.0); PLATELET COUNT (AUTO) 187 K/uL (150-450); RED BLOOD CELL COUNT(AUTO) 5.27 MIL/uL (4.50-5.90); RED CELL DISTRIBUTION WIDTH 17.3 % (11.5-14.5)
[2020-08-10 08:18] LABS: ALBUMIN 3.6 g/dL (3.4-5.0); BILIRUBIN,TOTAL 0.4 mg/dL (0.1-1.0); CALCIUM, TOTAL 8.5 mg/dL (8.8-10.5); CREATININE 8.83 mg/dL (0.60-1.30); POTASSIUM 3.7 mmol/L (3.5-5.1); TOTAL PROTEIN, SERUM 9.5 g/dL (6.4-8.2)
[2020-08-10] MEDS: HEPARIN SODIUM,PORCINE 5,000 UNITS/ML VIAL SQ SCH ×2 (08:37→20:28)
[2020-08-10] MEDS: DOCUSATE SODIUM 100 MG CAPSULE PO SCH ×2 (08:37→20:26)
[2020-08-10] MEDS: FAMOTIDINE 20 MG TABLET PO SCH (08:37)
[2020-08-10] MEDS: INSULIN LISPRO 100 UNITS/ML SQ PRN (11:31)
[2020-08-10] MEDS: SEVELAMER CARBONATE 800 MG TABLET PO SCH ×2 (11:52→17:54)
[2020-08-10 12:42] LABS: GLUCOSE,POINT OF CARE 99 MG/DL (70-110)
[2020-08-10 14:02] LABS: PROTHROMBIN TIME 10.6 SEC (9.4-11.6)
[2020-08-10 15:37] LABS: C-REACTIVE PROTEIN QUANT 9.35 mg/dL (0.00-0.30)
[2020-08-10 17:58] LABS: GLUCOMETER DEV NAME(LOC) 6N.2; GLUCOSE,POINT OF CARE 53 MG/DL (70-110)
[2020-08-10] MEDS: DEXTROSE 50%-WATER 25 GM/50 ML SYRINGE IVP PRN (18:25)
[2020-08-10 19:26] LABS: GLUCOMETER DEV NAME(LOC) 6N.2; GLUCOSE,POINT OF CARE 228 MG/DL (70-110)
[2020-08-10 19:26] LABS: GLUCOMETER DEV NAME(LOC) 6N.2; GLUCOSE,POINT OF CARE 58 MG/DL (70-110)
[2020-08-10 19:26] LABS: GLUCOMETER DEV NAME(LOC) 6N.2; GLUCOSE,POINT OF CARE 65 MG/DL (70-110)
[2020-08-10] MEDS ORDERED: HEPARIN SODIUM,PORCINE 1,000 UNITS/ML VIAL IVP ONE (19:36)
[2020-08-10] MEDS: ACETAMINOPHEN 325 MG TABLET PO PRN (20:28)
[2020-08-10 21:57] LABS: GLUCOMETER DEV NAME(LOC) 6S.1; GLUCOSE,POINT OF CARE 126 MG/DL (70-110)
[2020-08-11 01:04] VITALS: BP 137/62
[2020-08-11 05:12] VITALS: BP 135/92
[2020-08-11] MEDS: DEXTROSE 50%-WATER 25 GM/50 ML SYRINGE IVP PRN (05:14)
[2020-08-11 07:08] LABS: BASOPHILS % (AUTO) 0.7 % (0.0-2.0); EOSINOPHILS % (AUTO) 0.2 % (1.0-6.0); HEMATOCRIT 36.9 % (41-53); HEMOGLOBIN 11.7 g/dL (13.5-17.5); LYMPHOCYTES # (AUTO) 0.9 K/uL (1.0-4.8); LYMPHOCYTES % (AUTO) 10.7 % (22.0-44.0); MEAN CORPUSCULAR HEMOGLOBIN 23.6 pg (26.0-34.0); MEAN CORPUSCULAR HGB CONC 31.6 G/dL (31.0-37.0); MEAN CORPUSCULAR VOLUME 75 fL (80-100); MONOCYTES # (AUTO) 1.3 K/uL (0.1-1.0); MONOCYTES % (AUTO) 15.1 % (2.0-9.0); NEUTROPHILS # (AUTO) 6.2 K/uL (1.8-7.7); NEUTROPHILS % (AUTO) 73.3 % (40.0-70.0); PLATELET COUNT (AUTO) 188 K/uL (150-450); RED BLOOD CELL COUNT(AUTO) 4.95 MIL/uL (4.50-5.90); RED CELL DISTRIBUTION WIDTH 16.9 % (11.5-14.5)
[2020-08-11 07:26] LABS: CALCIUM, TOTAL 7.3 mg/dL (8.8-10.5); CREATININE 14.43 mg/dL (0.60-1.30); POTASSIUM 4.2 mmol/L (3.5-5.1)
[2020-08-11] MEDS: SEVELAMER CARBONATE 800 MG TABLET PO SCH ×3 (07:55→17:28)
[2020-08-11] MEDS: DOCUSATE SODIUM 100 MG CAPSULE PO SCH ×2 (07:55→20:32)
[2020-08-11] MEDS: FAMOTIDINE 20 MG TABLET PO SCH (07:55)
[2020-08-11] MEDS: HEPARIN SODIUM,PORCINE 5,000 UNITS/ML VIAL SQ SCH ×2 (07:55→20:39)
[2020-08-11 08:37] VITALS: BP 105/61
[2020-08-11 08:55] LABS: MAGNESIUM 1.8 mg/dL (1.80-2.40); PHOSPHORUS 5.7 mg/dL (2.5-4.9)
[2020-08-11 09:02] LABS: GLUCOMETER DEV NAME(LOC) 6N.2; GLUCOSE,POINT OF CARE 42 MG/DL (70-110)
[2020-08-11 09:02] LABS: GLUCOMETER DEV NAME(LOC) 6N.2; GLUCOSE,POINT OF CARE 165 MG/DL (70-110)
[2020-08-11 12:07] LABS: GLUCOMETER DEV NAME(LOC) 6S.1; GLUCOSE,POINT OF CARE 76 MG/DL (70-110)
[2020-08-11 15:40] VITALS: BP 126/66
[2020-08-11] MEDS: ACETAMINOPHEN 325 MG TABLET PO PRN ×2 (17:29→21:40)
[2020-08-11 18:06] LABS: GLUCOMETER DEV NAME(LOC) 6N.2; GLUCOSE,POINT OF CARE 71 MG/DL (70-110)
[2020-08-11 21:16] VITALS: BP 107/64
[2020-08-12 01:05] VITALS: BP 142/77
[2020-08-12] MEDS: ACETAMINOPHEN 325 MG TABLET PO PRN ×5 (01:42→21:31)
[2020-08-12 02:34] LABS: GLUCOMETER DEV NAME(LOC) 6N.2; GLUCOSE,POINT OF CARE 82 MG/DL (70-110)
[2020-08-12 07:54] LABS: GLUCOMETER DEV NAME(LOC) 6N.2; GLUCOSE,POINT OF CARE 78 MG/DL (70-110)
[2020-08-12] MEDS: SEVELAMER CARBONATE 800 MG TABLET PO SCH ×2 (08:00→13:21)
[2020-08-12] MEDS: FAMOTIDINE 20 MG TABLET PO SCH (08:00)
[2020-08-12] MEDS: HEPARIN SODIUM,PORCINE 5,000 UNITS/ML VIAL SQ SCH ×2 (08:01→21:27)
[2020-08-12] MEDS: DOCUSATE SODIUM 100 MG CAPSULE PO SCH ×2 (08:01→21:27)
[2020-08-12 08:49] LABS: CREATININE 17.21 mg/dL (0.60-1.30); MAGNESIUM 1.8 mg/dL (1.80-2.40); PHOSPHORUS 6.2 mg/dL (2.5-4.9)
[2020-08-12 09:37] VITALS: BP 107/41
[2020-08-12] MEDS ORDERED: VANCOMYCIN HCL 1 GM/D5% WATER 200 ML IV PRN (09:45)
[2020-08-12] MEDS ORDERED: SODIUM CHLORIDE 0.9% 1,000 ML ONE ×3 (09:55→09:56)
[2020-08-12] MEDS ORDERED: VANCOMYCIN HCL 1.5 GM in DEXTROSE 5%-WATER 250 ML IV ONE (11:00)
[2020-08-12 11:17] LABS: BASOPHILS % (AUTO) 1.3 % (0.0-2.0); EOSINOPHILS % (AUTO) 0.1 % (1.0-6.0); HEMATOCRIT 35.1 % (41-53); HEMOGLOBIN 11.2 g/dL (13.5-17.5); LYMPHOCYTES # (AUTO) 1.3 K/uL (1.0-4.8); MEAN CORPUSCULAR HEMOGLOBIN 23.5 pg (26.0-34.0); MEAN CORPUSCULAR HGB CONC 31.8 G/dL (31.0-37.0); MEAN CORPUSCULAR VOLUME 74 fL (80-100); MONOCYTES # (AUTO) 1.1 K/uL (0.1-1.0); MONOCYTES % (AUTO) 16.5 % (2.0-9.0); NEUTROPHILS # (AUTO) 3.9 K/uL (1.8-7.7); NEUTROPHILS % (AUTO) 61.1 % (40.0-70.0); PLATELET COUNT (AUTO) 164 K/uL (150-450); RED BLOOD CELL COUNT(AUTO) 4.76 MIL/uL (4.50-5.90); RED CELL DISTRIBUTION WIDTH 16.4 % (11.5-14.5)
[2020-08-12] MEDS ORDERED: HEPARIN SODIUM,PORCINE 1,000 UNITS/ML VIAL IVP ONE (12:00)
[2020-08-12] MEDS ORDERED: SODIUM CHLORIDE 0.9% 250 ML IV ONE (13:08)
[2020-08-12 13:13] LABS: GLUCOMETER DEV NAME(LOC) 6S.1; GLUCOSE,POINT OF CARE 94 MG/DL (70-110)
[2020-08-12] MEDS ORDERED: CALCIUM GLUCONATE 100 MG/ML 10 ML IVP ONE (15:45)
[2020-08-12 16:19] VITALS: BP 130/70
[2020-08-12 17:31] LABS: GLUCOMETER DEV NAME(LOC) 6N.2; GLUCOSE,POINT OF CARE 88 MG/DL (70-110)
[2020-08-12] MEDS: CALCIUM ACETATE 667 MG CAPSULE PO SCH (17:32)
[2020-08-12 20:38] VITALS: BP 124/62
[2020-08-12] MEDS ORDERED: SODIUM CHLORIDE 0.9% 500 ML IV ONE (21:24)
[2020-08-12 23:31] VITALS: BP 108/57
[2020-08-13] MEDS: ACETAMINOPHEN 325 MG TABLET PO PRN ×3 (01:32→16:34)
[2020-08-13 05:31] VITALS: BP 118/68
[2020-08-13 06:05] LABS: GLUCOMETER DEV NAME(LOC) 6N.2; GLUCOSE,POINT OF CARE 105 MG/DL (70-110)
[2020-08-13 08:00] VITALS: BP 135/77
[2020-08-13] MEDS: CALCITRIOL 0.25 MCG CAPSULE PO SCH (08:48)
[2020-08-13] MEDS: FAMOTIDINE 20 MG TABLET PO SCH (08:48)
[2020-08-13] MEDS: DOCUSATE SODIUM 100 MG CAPSULE PO SCH ×2 (08:48→20:23)
[2020-08-13] MEDS: CALCIUM ACETATE 667 MG CAPSULE PO SCH ×3 (08:48→18:00)
[2020-08-13] MEDS: HEPARIN SODIUM,PORCINE 5,000 UNITS/ML VIAL SQ SCH ×2 (08:49→20:23)
[2020-08-13 10:29] VITALS: BP 135/77
[2020-08-13 11:55] LABS: GLUCOMETER DEV NAME(LOC) 6S.1; GLUCOSE,POINT OF CARE 115 MG/DL (70-110)
[2020-08-13 12:10] LABS: BASOPHILS % (AUTO) 1.3 % (0.0-2.0); EOSINOPHILS % (AUTO) 0.1 % (1.0-6.0); HEMATOCRIT 36.7 % (41-53); HEMOGLOBIN 11.7 g/dL (13.5-17.5); LYMPHOCYTES # (AUTO) 1.3 K/uL (1.0-4.8); LYMPHOCYTES % (AUTO) 18.7 % (22.0-44.0); MEAN CORPUSCULAR HEMOGLOBIN 23.2 pg (26.0-34.0); MEAN CORPUSCULAR HGB CONC 31.8 G/dL (31.0-37.0); MEAN CORPUSCULAR VOLUME 73 fL (80-100); MONOCYTES # (AUTO) 0.9 K/uL (0.1-1.0); MONOCYTES % (AUTO) 13.1 % (2.0-9.0); NEUTROPHILS # (AUTO) 4.7 K/uL (1.8-7.7); NEUTROPHILS % (AUTO) 66.8 % (40.0-70.0); PLATELET COUNT (AUTO) 158 K/uL (150-450); RED BLOOD CELL COUNT(AUTO) 5.03 MIL/uL (4.50-5.90); RED CELL DISTRIBUTION WIDTH 16.6 % (11.5-14.5)
[2020-08-13 12:41] LABS: CALCIUM, TOTAL 8.1 mg/dL (8.8-10.5); CREATININE 13.95 mg/dL (0.60-1.30); POTASSIUM 4.4 mmol/L (3.5-5.1)
[2020-08-13 13:17] LABS: LACTIC ACID 0.9 mmol/L (0.4-2.0)
[2020-08-13 16:28] VITALS: BP 155/74
[2020-08-13 17:34] LABS: GLUCOMETER DEV NAME(LOC) 6N.2; GLUCOSE,POINT OF CARE 122 MG/DL (70-110)
[2020-08-13] MEDS ORDERED: PIPERACILLIN/TAZO 3.375 GM/D5W 50 ML IV ONE (18:15)
[2020-08-13] MEDS ORDERED: PIPERACILLIN SODIUM/TAZOBACTAM 0.75 GM in DEXTROSE 5%-WATER 50 ML IV PRN (18:45)
[2020-08-13 20:15] VITALS: BP 125/71
[2020-08-13 22:13] LABS: GLUCOMETER DEV NAME(LOC) 6S.1; GLUCOSE,POINT OF CARE 95 MG/DL (70-110)
[2020-08-13 23:15] VITALS: BP 105/51
[2020-08-14] VITALS: BP 99/56
[2020-08-14] MEDS: ACETAMINOPHEN 325 MG TABLET PO PRN ×2 (00:03→20:53)
[2020-08-14 04:45] VITALS: BP 101/53
[2020-08-14] MEDS: PIPERACILLIN SODIUM/TAZOBACTAM 2.25 GM in DEXTROSE 5%-WATER 50 ML IV SCH ×2 (05:13→09:39)
[2020-08-14 06:54] LABS: GLUCOMETER DEV NAME(LOC) 6N.2; GLUCOSE,POINT OF CARE 94 MG/DL (70-110)
[2020-08-14 06:55] LABS: GLUCOMETER DEV NAME(LOC) 6S.1; GLUCOSE,POINT OF CARE 98 MG/DL (70-110)
[2020-08-14 07:34] LABS: BASOPHILS % (AUTO) 0.9 % (0.0-2.0); EOSINOPHILS % (AUTO) 0 % (1.0-6.0); HEMATOCRIT 37.5 % (41-53); HEMOGLOBIN 11.8 g/dL (13.5-17.5); LYMPHOCYTES # (AUTO) 1.3 K/uL (1.0-4.8); LYMPHOCYTES % (AUTO) 17.9 % (22.0-44.0); MEAN CORPUSCULAR HEMOGLOBIN 23.4 pg (26.0-34.0); MEAN CORPUSCULAR HGB CONC 31.5 G/dL (31.0-37.0); MEAN CORPUSCULAR VOLUME 74 fL (80-100); MONOCYTES # (AUTO) 0.9 K/uL (0.1-1.0); MONOCYTES % (AUTO) 11.8 % (2.0-9.0); NEUTROPHILS % (AUTO) 69.4 % (40.0-70.0); PLATELET COUNT (AUTO) 170 K/uL (150-450); RED BLOOD CELL COUNT(AUTO) 5.05 MIL/uL (4.50-5.90); RED CELL DISTRIBUTION WIDTH 16.8 % (11.5-14.5)
[2020-08-14] MEDS ORDERED: BARIUM SULFATE 0.1% SUSPENSION 450 ML BOTTLE ONE (08:14)
[2020-08-14 08:27] VITALS: BP 147/55
[2020-08-14 08:54] LABS: BILIRUBIN,TOTAL 0.4 mg/dL (0.1-1.0); C-REACTIVE PROTEIN QUANT 12.27 mg/dL (0.00-0.30); CALCIUM, TOTAL 8.3 mg/dL (8.8-10.5); CREATININE 16.06 mg/dL (0.60-1.30); POTASSIUM 4.9 mmol/L (3.5-5.1); TOTAL PROTEIN, SERUM 8.8 g/dL (6.4-8.2); VANCOMYCIN,RANDOM 16.3 mcg/mL (25.0-50.0)
[2020-08-14] MEDS ORDERED: -HEMODIALYSIS NOTE- MISC SCH (09:00)
[2020-08-14] MEDS: FAMOTIDINE 20 MG TABLET PO SCH (09:44)
[2020-08-14] MEDS: DOCUSATE SODIUM 100 MG CAPSULE PO SCH ×2 (09:44→21:00)
[2020-08-14] MEDS: CALCITRIOL 0.25 MCG CAPSULE PO SCH (09:44)
[2020-08-14] MEDS: CALCIUM ACETATE 667 MG CAPSULE PO SCH ×3 (09:44→18:14)
[2020-08-14] MEDS: HEPARIN SODIUM,PORCINE 5,000 UNITS/ML VIAL SQ SCH ×2 (09:45→20:51)
[2020-08-14] MEDS ORDERED: VANCOMYCIN HCL 1 GM/D5% WATER 200 ML IV ONE (11:00)
[2020-08-14] MEDS ORDERED: SODIUM CHLORIDE 0.9% 100 ML ONE (13:13)
[2020-08-14] MEDS ORDERED: IOVERSOL 320 MG/ML 100 ML VIAL ONE (13:13)
[2020-08-14 14:20] LABS: GLUCOMETER DEV NAME(LOC) 6N.2; GLUCOSE,POINT OF CARE 131 MG/DL (70-110)
[2020-08-14] MEDS: CefTAZidime PENTAHYDRATE 1 GM in DEXTROSE 5%-WATER 50 ML IV SCH (15:36)
[2020-08-14 15:46] VITALS: BP 125/60
[2020-08-14] MEDS: MetroNIDAZOLE 500 MG TABLET PO SCH ×2 (16:56→20:51)
[2020-08-14 18:04] LABS: GLUCOMETER DEV NAME(LOC) 6S.1; GLUCOSE,POINT OF CARE 123 MG/DL (70-110)
[2020-08-14 19:58] VITALS: BP 122/61
[2020-08-14 23:03] VITALS: BP 102/56
[2020-08-15] VITALS (8 sets, daily range): BP systolic 91–138; BP diastolic 5–78
[2020-08-15] MEDS ORDERED: SODIUM CHLORIDE 0.9% 2,000 ML ONE (06:04)
[2020-08-15 06:43] LABS: GLUCOMETER DEV NAME(LOC) 6S.1; GLUCOSE,POINT OF CARE 101 MG/DL (70-110)
[2020-08-15 06:43] LABS: GLUCOMETER DEV NAME(LOC) 6S.1; GLUCOSE,POINT OF CARE 101 MG/DL (70-110)
[2020-08-15] MEDS: DOCUSATE SODIUM 100 MG CAPSULE PO SCH ×2 (09:00→19:45)
[2020-08-15] MEDS: CALCIUM ACETATE 667 MG CAPSULE PO SCH ×3 (09:12→18:24)
[2020-08-15] MEDS: MetroNIDAZOLE 500 MG TABLET PO SCH ×3 (09:12→21:17)
[2020-08-15] MEDS: ACETAMINOPHEN 325 MG TABLET PO PRN (09:12)
[2020-08-15] MEDS: FAMOTIDINE 20 MG TABLET PO SCH (09:13)
[2020-08-15] MEDS: CALCITRIOL 0.25 MCG CAPSULE PO SCH (09:13)
[2020-08-15] MEDS: HEPARIN SODIUM,PORCINE 5,000 UNITS/ML VIAL SQ SCH ×2 (09:13→21:17)
[2020-08-15] MEDS: CefTAZidime PENTAHYDRATE 1 GM in DEXTROSE 5%-WATER 50 ML IV SCH (14:18)
[2020-08-15 18:14] LABS: CALCIUM, TOTAL 8.7 mg/dL (8.8-10.5); CREATININE 12.79 mg/dL (0.60-1.30); POTASSIUM 4.4 mmol/L (3.5-5.1)
[2020-08-15 18:57] LABS: GLUCOMETER DEV NAME(LOC) 5S.2B; GLUCOSE,POINT OF CARE 164 MG/DL (70-110)
[2020-08-15] MEDS: INSULIN LISPRO 100 UNITS/ML SQ PRN ×2 (19:01→21:20)
[2020-08-15 19:55] LABS: GLUCOMETER DEV NAME(LOC) 6N.2; GLUCOSE,POINT OF CARE 127 MG/DL (70-110)
[2020-08-15 21:36] LABS: GLUCOMETER DEV NAME(LOC) 5S.2B; GLUCOSE,POINT OF CARE 168 MG/DL (70-110)
[2020-08-16 03:35] VITALS: BP 104/63
[2020-08-16 06:42] LABS: GLUCOMETER DEV NAME(LOC) 5N.1B; GLUCOSE,POINT OF CARE 114 MG/DL (70-110)
[2020-08-16 08:20] VITALS: BP 106/64
[2020-08-16] MEDS: CHOLECALCIFEROL (VIT D3) 1,000 UNITS [25 MCG] TABLET PO SCH (08:47)
[2020-08-16] MEDS: CALCIUM ACETATE 667 MG CAPSULE PO SCH ×3 (08:47→18:25)
[2020-08-16] MEDS: CALCITRIOL 0.25 MCG CAPSULE PO SCH (08:48)
[2020-08-16] MEDS: HEPARIN SODIUM,PORCINE 5,000 UNITS/ML VIAL SQ SCH ×2 (08:48→21:46)
[2020-08-16] MEDS: FAMOTIDINE 20 MG TABLET PO SCH (08:48)
[2020-08-16] MEDS: ZINC SULFATE 220 MG CAPSULE PO SCH (08:48)
[2020-08-16] MEDS: MetroNIDAZOLE 500 MG TABLET PO SCH ×3 (08:48→21:46)
[2020-08-16] MEDS: DOCUSATE SODIUM 100 MG CAPSULE PO SCH ×2 (08:48→21:00)
[2020-08-16 10:05] LABS: BASOPHILS % (AUTO) 1.4 % (0.0-2.0); EOSINOPHILS % (AUTO) 0.1 % (1.0-6.0); HEMOGLOBIN 11.1 g/dL (13.5-17.5); LYMPHOCYTES # (AUTO) 1.2 K/uL (1.0-4.8); LYMPHOCYTES % (AUTO) 20.6 % (22.0-44.0); MEAN CORPUSCULAR HEMOGLOBIN 23.2 pg (26.0-34.0); MEAN CORPUSCULAR HGB CONC 31.7 G/dL (31.0-37.0); MEAN CORPUSCULAR VOLUME 73 fL (80-100); MONOCYTES # (AUTO) 0.9 K/uL (0.1-1.0); MONOCYTES % (AUTO) 14.7 % (2.0-9.0); NEUTROPHILS # (AUTO) 3.8 K/uL (1.8-7.7); NEUTROPHILS % (AUTO) 63.2 % (40.0-70.0); PLATELET COUNT (AUTO) 204 K/uL (150-450); RED CELL DISTRIBUTION WIDTH 16.4 % (11.5-14.5)
[2020-08-16 12:10] LABS: COVID AG,FIA SOURCE NASAL SWAB
[2020-08-16 12:15] VITALS: BP 134/71
[2020-08-16] MEDS: INSULIN LISPRO 100 UNITS/ML SQ PRN (12:58)
[2020-08-16] MEDS ORDERED: SODIUM CHLORIDE 0.9% 500 ML IV ONE (15:42)
[2020-08-16] MEDS: CefTAZidime PENTAHYDRATE 1 GM in DEXTROSE 5%-WATER 50 ML IV SCH (15:52)
[2020-08-16 15:55] VITALS: BP 124/69
[2020-08-16 20:15] VITALS: BP 151/77
[2020-08-16] MEDS: ACETAMINOPHEN 325 MG TABLET PO PRN (21:45)
[2020-08-17 00:53] VITALS: BP 99/55
[2020-08-17 03:02] LABS: GLUCOMETER DEV NAME(LOC) 5N.1B; GLUCOSE,POINT OF CARE 118 MG/DL (70-110)
[2020-08-17 03:02] LABS: GLUCOMETER DEV NAME(LOC) 5S.1; GLUCOSE,POINT OF CARE 147 MG/DL (70-110)
[2020-08-17 03:02] LABS: GLUCOMETER DEV NAME(LOC) 5N.1B; GLUCOSE,POINT OF CARE 134 MG/DL (70-110)
[2020-08-17 05:16] VITALS: BP 112/72
[2020-08-17 06:45] LABS: GLUCOMETER DEV NAME(LOC) 5S.1; GLUCOSE,POINT OF CARE 115 MG/DL (70-110)
[2020-08-17 08:00] VITALS: BP 118/60
[2020-08-17] MEDS: DOCUSATE SODIUM 100 MG CAPSULE PO SCH ×2 (09:00→19:55)
[2020-08-17] MEDS: HEPARIN SODIUM,PORCINE 5,000 UNITS/ML VIAL SQ SCH ×2 (09:08→20:40)
[2020-08-17] MEDS: ZINC SULFATE 220 MG CAPSULE PO SCH (09:08)
[2020-08-17] MEDS: CHOLECALCIFEROL (VIT D3) 1,000 UNITS [25 MCG] TABLET PO SCH (09:08)
[2020-08-17] MEDS: FAMOTIDINE 20 MG TABLET PO SCH (09:08)
[2020-08-17] MEDS: CALCIUM ACETATE 667 MG CAPSULE PO SCH ×3 (09:08→17:07)
[2020-08-17] MEDS: CALCITRIOL 0.25 MCG CAPSULE PO SCH (09:08)
[2020-08-17] MEDS: MetroNIDAZOLE 500 MG TABLET PO SCH (09:08)
[2020-08-17] MEDS ORDERED: SODIUM CHLORIDE 0.9% 2,000 ML ONE (10:16)
[2020-08-17] MEDS ORDERED: DEXAMETHASONE 4 MG TABLET PO SCH (11:00)
[2020-08-17 12:35] VITALS: BP 97/60
[2020-08-17 16:00] VITALS: BP 109/70
[2020-08-17] MEDS ORDERED: VANCOMYCIN HCL 1 GM/D5% WATER 200 ML IV ONE (16:00)
[2020-08-17] MEDS: INSULIN LISPRO 100 UNITS/ML SQ PRN ×2 (17:11→20:45)
[2020-08-17 19:34] VITALS: BP 123/69
[2020-08-17 21:10] LABS: GLUCOMETER DEV NAME(LOC) 5S.1; GLUCOSE,POINT OF CARE 110 MG/DL (70-110)
[2020-08-17 21:10] LABS: GLUCOMETER DEV NAME(LOC) 5S.1; GLUCOSE,POINT OF CARE 160 MG/DL (70-110)
[2020-08-17 21:10] LABS: GLUCOMETER DEV NAME(LOC) 5S.1; GLUCOSE,POINT OF CARE 193 MG/DL (70-110)
[2020-08-18] VITALS (7 sets, daily range): BP systolic 108–139; BP diastolic 70–79
[2020-08-18 06:16] LABS: GLUCOMETER DEV NAME(LOC) 5S.1; GLUCOSE,POINT OF CARE 153 MG/DL (70-110)
[2020-08-18] MEDS: INSULIN LISPRO 100 UNITS/ML SQ PRN ×4 (06:59→20:54)
[2020-08-18] MEDS: FAMOTIDINE 20 MG TABLET PO SCH (09:27)
[2020-08-18] MEDS: ZINC SULFATE 220 MG CAPSULE PO SCH (09:27)
[2020-08-18] MEDS: DEXAMETHASONE 2 MG TABLET PO SCH (09:27)
[2020-08-18] MEDS: CALCITRIOL 0.25 MCG CAPSULE PO SCH (09:27)
[2020-08-18] MEDS: CALCIUM ACETATE 667 MG CAPSULE PO SCH ×3 (09:27→17:04)
[2020-08-18] MEDS: HEPARIN SODIUM,PORCINE 5,000 UNITS/ML VIAL SQ SCH ×2 (09:28→20:54)
[2020-08-18] MEDS: CHOLECALCIFEROL (VIT D3) 1,000 UNITS [25 MCG] TABLET PO SCH (09:28)
[2020-08-18] MEDS: DOCUSATE SODIUM 100 MG CAPSULE PO SCH ×2 (09:38→20:54)
[2020-08-19 00:32] LABS: GLUCOMETER DEV NAME(LOC) 5N.3; GLUCOSE,POINT OF CARE 228 MG/DL (70-110)
[2020-08-19 03:48] VITALS: BP 140/80
[2020-08-19] MEDS: INSULIN LISPRO 100 UNITS/ML SQ PRN ×4 (06:02→20:35)
[2020-08-19 06:21] LABS: HEMATOCRIT 33.3 % (41-53); HEMOGLOBIN 10.5 g/dL (13.5-17.5); MEAN CORPUSCULAR HEMOGLOBIN 23.2 pg (26.0-34.0); MEAN CORPUSCULAR HGB CONC 31.6 G/dL (31.0-37.0); MEAN CORPUSCULAR VOLUME 74 fL (80-100); PLATELET COUNT (AUTO) 303 K/uL (150-450); RED BLOOD CELL COUNT(AUTO) 4.54 MIL/uL (4.50-5.90); RED CELL DISTRIBUTION WIDTH 16.3 % (11.5-14.5)
[2020-08-19 06:55] LABS: ALBUMIN 2.6 g/dL (3.4-5.0); BILIRUBIN,TOTAL 0.3 mg/dL (0.1-1.0); C-REACTIVE PROTEIN QUANT 5.12 mg/dL (0.00-0.30); CALCIUM, TOTAL 8.7 mg/dL (8.8-10.5); CREATININE 13.82 mg/dL (0.60-1.30); POTASSIUM 4.6 mmol/L (3.5-5.1); TOTAL PROTEIN, SERUM 8.2 g/dL (6.4-8.2)
[2020-08-19] MEDS: DOCUSATE SODIUM 100 MG CAPSULE PO SCH ×2 (07:43→20:46)
[2020-08-19 08:00] VITALS: BP 138/77
[2020-08-19] MEDS: FAMOTIDINE 20 MG TABLET PO SCH (08:30)
[2020-08-19] MEDS: HEPARIN SODIUM,PORCINE 5,000 UNITS/ML VIAL SQ SCH ×2 (08:31→20:34)
[2020-08-19] MEDS: CHOLECALCIFEROL (VIT D3) 1,000 UNITS [25 MCG] TABLET PO SCH (08:31)
[2020-08-19] MEDS: DEXAMETHASONE 2 MG TABLET PO SCH (08:31)
[2020-08-19] MEDS: ZINC SULFATE 220 MG CAPSULE PO SCH (08:31)
[2020-08-19] MEDS: CALCIUM ACETATE 667 MG CAPSULE PO SCH ×3 (08:31→17:39)
[2020-08-19] MEDS: CALCITRIOL 0.25 MCG CAPSULE PO SCH (08:31)
[2020-08-19 08:38] LABS: BAND NEUTROPHILS % (MANUAL) 5 % (0-5); LYMPHOCYTES % (MANUAL) 16 % (22-44); MONOCYTES % (MANUAL) 5 % (2-9); SEGMENTED NEUTROPHILS % 74 % (40-70)
[2020-08-19 12:18] VITALS: BP 141/64
[2020-08-19 16:21] VITALS: BP 128/68
[2020-08-19 19:48] VITALS: BP 148/86
[2020-08-19 23:57] VITALS: BP 146/88
[2020-08-20 04:25] VITALS: BP 149/80
[2020-08-20] MEDS: INSULIN LISPRO 100 UNITS/ML SQ PRN ×4 (06:38→20:16)
[2020-08-20 07:46] VITALS: BP 159/85
[2020-08-20] MEDS: ZINC SULFATE 220 MG CAPSULE PO SCH (08:12)
[2020-08-20] MEDS: CHOLECALCIFEROL (VIT D3) 1,000 UNITS [25 MCG] TABLET PO SCH (08:12)
[2020-08-20] MEDS: CALCIUM ACETATE 667 MG CAPSULE PO SCH ×3 (08:12→18:32)
[2020-08-20] MEDS: DEXAMETHASONE 2 MG TABLET PO SCH (08:12)
[2020-08-20] MEDS: FAMOTIDINE 20 MG TABLET PO SCH (08:12)
[2020-08-20] MEDS: CALCITRIOL 0.25 MCG CAPSULE PO SCH (08:12)
[2020-08-20] MEDS: HEPARIN SODIUM,PORCINE 5,000 UNITS/ML VIAL SQ SCH ×2 (08:13→20:07)
[2020-08-20] MEDS: DOCUSATE SODIUM 100 MG CAPSULE PO SCH ×2 (08:16→20:08)
[2020-08-20 11:43] VITALS: BP 98/63
[2020-08-20 16:23] VITALS: BP 116/65
[2020-08-20 21:02] VITALS: BP 125/75
[2020-08-21 00:52] VITALS: BP 156/85
[2020-08-21 04:01] VITALS: BP 145/73
[2020-08-21] MEDS: INSULIN LISPRO 100 UNITS/ML SQ PRN ×2 (06:08→12:37)
[2020-08-21 07:55] VITALS: BP 135/76
[2020-08-21] MEDS: FAMOTIDINE 20 MG TABLET PO SCH (10:03)
[2020-08-21] MEDS: DEXAMETHASONE 2 MG TABLET PO SCH (10:03)
[2020-08-21] MEDS: CHOLECALCIFEROL (VIT D3) 1,000 UNITS [25 MCG] TABLET PO SCH (10:04)
[2020-08-21] MEDS: ZINC SULFATE 220 MG CAPSULE PO SCH (10:04)
[2020-08-21] MEDS: DOCUSATE SODIUM 100 MG CAPSULE PO SCH (10:04)
[2020-08-21] MEDS: CALCITRIOL 0.25 MCG CAPSULE PO SCH (10:04)
[2020-08-21] MEDS: CALCIUM ACETATE 667 MG CAPSULE PO SCH ×2 (10:04→12:45)
[2020-08-21] MEDS: HEPARIN SODIUM,PORCINE 5,000 UNITS/ML VIAL SQ SCH (10:05)
[2020-08-21 12:00] VITALS: BP 128/72
[2020-08-21 15:00] VITALS: BP 132/80
== END 2020-08-21 15:05 | disposition home or self-care (01) | DRG 871 ==
LOC: EMS 08:51 → 6N 08-10 13:56 → 5S 08-15 13:40
PROVIDERS: ADMIT Internal Medicine; ATTEND Internal Medicine
PROC: 5A1D70Z Performance of Urinary Filtration, Intermittent, Less than 6 Hours Per Day (ICD-10-PCS; principal; 2020-08-10)
PROC: 5A1D70Z Performance of Urinary Filtration, Intermittent, Less than 6 Hours Per Day (ICD-10-PCS; 2020-08-12)
PROC: 5A1D70Z Performance of Urinary Filtration, Intermittent, Less than 6 Hours Per Day (ICD-10-PCS; 2020-08-17)
PROC: 5A1D70Z Performance of Urinary Filtration, Intermittent, Less than 6 Hours Per Day (ICD-10-PCS; 2020-08-19)
DX: A41.89 Other specified sepsis (principal); U07.1 COVID-19; N18.6 End stage renal disease; J12.89 Other viral pneumonia; N25.81 Secondary hyperparathyroidism of renal origin; E44.0 Moderate protein-calorie malnutrition; I13.2 Hypertensive heart and chronic kidney disease with heart failure and with stage 5 chronic kidney disease, or end stage renal disease; E87.1 Hypo-osmolality and hyponatremia; I50.32 Chronic diastolic (congestive) heart failure; E87.2 Acidosis; R53.81 Other malaise; F19.10 Other psychoactive substance abuse, uncomplicated; E83.39 Other disorders of phosphorus metabolism; R19.7 Diarrhea, unspecified; F12.90 Cannabis use, unspecified, uncomplicated; E11.22 Type 2 diabetes mellitus with diabetic chronic kidney disease; D63.1 Anemia in chronic kidney disease; E83.51 Hypocalcemia; Z99.2 Dependence on renal dialysis; Z68.27 Body mass index [BMI] 27.0-27.9, adult; Z79.899 Other long term (current) drug therapy; Z79.82 Long term (current) use of aspirin
CPT/HCPCS: 71260; 72193; 74160; 82728; 83605; 83615; 83735; 84075; 84100; 84145; 85007; 85379; 85384; 86140; 87040; 87081; 87340; 87426; 93005; 97110; 97116; 97161; 97530; J0610; J0713; J1644; J2543; J3370; J7030; J7040; J7050; J7060; J8540; 36415-L1; 36415-TC; 71045-TC; 71046; 71046-TC; 80202-TC

== ENCOUNTER 2021-07-18 16:36 | Emergency (ER) | payer MEDICARE, OTHER ==
[~2021-07-18] VITALS: Ht 175.3 cm; Wt 100.0 kg
[~2021-07-18 16:36] MED LIST changes: -AMLO-258 PO; -AMOX1TAB16 PO; +ASPI-1450 PO; -ASPI-728 PO; -BUME1TAB34 PO; -CARV25 PO; -EPOE10003 SQ; -INSLAN SQ; -ISOS60TA4 PO; -LINA5TAB PO; -ROSU10TA22 PO; +ROSU10TA72 PO; -ZARO5 PO
[2021-07-18 17:15] LABS: COVID AG,FIA SOURCE NASOPHARYNGEAL
[2021-07-18 17:44] LABS: BASOPHILS % (AUTO) 1.1 % (0.0-2.0); EOSINOPHILS % (AUTO) 1.7 % (1.0-6.0); HEMATOCRIT 37.5 % (41-53); HEMOGLOBIN 11.8 g/dL (13.5-17.5); LYMPHOCYTES # (AUTO) 1.5 K/uL (1.0-4.8); LYMPHOCYTES % (AUTO) 13.3 % (22.0-44.0); MEAN CORPUSCULAR HEMOGLOBIN 24.3 pg (26.0-34.0); MEAN CORPUSCULAR HGB CONC 31.5 G/dL (31.0-37.0); MEAN CORPUSCULAR VOLUME 77 fL (80-100); MONOCYTES % (AUTO) 8.5 % (2.0-9.0); NEUTROPHILS # (AUTO) 8.7 K/uL (1.8-7.7); NEUTROPHILS % (AUTO) 75.4 % (40.0-70.0); PLATELET COUNT (AUTO) 174 K/uL (150-450); RED BLOOD CELL COUNT(AUTO) 4.86 MIL/uL (4.50-5.90); RED CELL DISTRIBUTION WIDTH 15.2 % (11.5-14.5)
[2021-07-18 17:58] LABS: PROTHROMBIN TIME 10.8 SEC (9.4-11.6)
[2021-07-18 18:09] LABS: CALCIUM, TOTAL 8.9 mg/dL (8.8-10.5)
[2021-07-18 18:33] LABS: ALBUMIN 3.5 g/dL (3.4-5.0); BILIRUBIN,TOTAL 0.6 mg/dL (0.1-1.0); PHOSPHORUS 3.5 mg/dL (2.5-4.9); TOTAL PROTEIN, SERUM 8.7 g/dL (6.4-8.2)
[2021-07-18] MEDS ORDERED: ACETAMINOPHEN 325 MG TABLET PO PRN (19:30)
[2021-07-18] MEDS ORDERED: ONDANSETRON HCL 4 MG/2 ML VIAL IVP PRN (19:30)
[2021-07-18] MEDS ORDERED: CefTRIAXone 1 GM/DEXTROSE 50 ML IV SCH (19:45)
[2021-07-18] MEDS ORDERED: AZITHROMYCIN 500 MG/NS 250 ML IV SCH (19:45)
[2021-07-18 20:19] VITALS: BP 112/69
[2021-07-18] MEDS ORDERED: ROSUVASTATIN CALCIUM 10 MG TABLET PO SCH (21:00)
[2021-07-19] MEDS ORDERED: HEPARIN SODIUM,PORCINE 5,000 UNITS/ML VIAL SQ SCH
[2021-07-19] MEDS ORDERED: CALCIUM ACETATE 667 MG CAPSULE PO SCH (08:00)
[2021-07-19] MEDS ORDERED: ASPIRIN 81 MG CHEWABLE TABLET PO SCH (09:00)
== END 2021-07-18 20:30 | disposition left against medical advice (07) ==
LOC: EMS 16:41
DX: R55 Syncope and collapse (principal); N18.5 Chronic kidney disease, stage 5; Z99.2 Dependence on renal dialysis; I95.9 Hypotension, unspecified; Z20.822 Contact with and (suspected) exposure to COVID-19
CPT/HCPCS: 70450; 71045; 80053; 82550; 82962; 83036; 83735; 83880; 84100; 84484; 85025; 85610; 85730; 93005; 99291; 36415-L1; 36415-TC

== ENCOUNTER 2022-06-30 03:08 | Emergency (ER) | payer MEDICARE, OTHER ==
[~2022-06-30] VITALS: Ht 175.3 cm; Wt 96.0 kg
[2022-06-30] MEDS ORDERED: CEPH-558 PO (04:38)
[2022-06-30 05:25] VITALS: BP 124/73
== END 2022-06-30 06:23 | disposition home or self-care (01) ==
LOC: EMS 03:11
DX: M79.645 Pain in left finger(s) (principal)
CPT/HCPCS: 99283

== ENCOUNTER 2022-07-04 23:50 | Emergency (ER) | payer MEDICARE, OTHER ==
[~2022-07-04] VITALS: Ht 175.3 cm; Wt 95.5 kg
[~2022-07-04 23:50] MED LIST changes: +CEPH-558 PO
[2022-07-05 00:11] LABS: GLUCOMETER DEV NAME(LOC) ERT.5; GLUCOSE,POINT OF CARE 228 MG/DL (70-110)
[2022-07-05] MEDS ORDERED: LIDOCAINE 1% 10 ML VIAL SQ ONE (01:00)
[2022-07-05] MEDS: CefTRIAXone SODIUM 1 GM/VIAL IM ONE ×2 (02:00→02:06)
[2022-07-05] MEDS: LIDOCAINE/PF 1% 2 ML VIAL IM ONE ×2 (02:00→02:06)
[2022-07-05 03:35] VITALS: BP 107/64
[2022-07-05] MEDS ORDERED: CEPH-558 PO (03:51)
[2022-07-05] MEDS ORDERED: PERCT PO (03:52)
[2022-07-05] MEDS ORDERED: OxyCODONE HCL/ACETAMINOPHEN 5-325 MG TABLET PO ONE (04:00)
== END 2022-07-05 04:07 | disposition home or self-care (01) ==
LOC: EMS 23:58
DX: L03.012 Cellulitis of left finger (principal); I12.0 Hypertensive chronic kidney disease with stage 5 chronic kidney disease or end stage renal disease; E11.22 Type 2 diabetes mellitus with diabetic chronic kidney disease; N18.6 End stage renal disease; Z99.2 Dependence on renal dialysis
CPT/HCPCS: 82962; 99284; 26011; 96372; J0696; J3490

== ENCOUNTER 2022-07-20 11:29 | Emergency (ER) | payer MEDICARE, OTHER ==
[~2022-07-20 11:29] MED LIST changes: +PERCT PO
== END 2022-07-20 11:42 | disposition left against medical advice (07) ==
LOC: EMS 11:32
DX: Z53.21 Procedure and treatment not carried out due to patient leaving prior to being seen by health care provider (principal)

== ENCOUNTER 2023-03-02 08:31 | Emergency (ER) | payer MEDICARE, OTHER ==
[~2023-03-02] VITALS: Ht 175.3 cm; Wt 91.0 kg
[2023-03-02 08:37] VITALS: TEMP 97.9
[2023-03-02] MEDS ORDERED: LIDOCAINE 1% 10 ML VIAL SQ ONE (10:00)
[2023-03-02] MEDS ORDERED: CLINDAMYCIN HCL 150 MG CAPSULE PO ONE (10:00)
[2023-03-02 11:05] VITALS: BP 125/88; PULSE 98; RESP 18
[2023-03-02] MEDS ORDERED: CLIN-142 PO (11:10)
== END 2023-03-02 11:25 | disposition home or self-care (01) ==
LOC: EMS 08:39
DX: N45.4 Abscess of epididymis or testis (principal); I12.9 Hypertensive chronic kidney disease with stage 1 through stage 4 chronic kidney disease, or unspecified chronic kidney disease; E11.22 Type 2 diabetes mellitus with diabetic chronic kidney disease; N18.9 Chronic kidney disease, unspecified; Z94.0 Kidney transplant status
CPT/HCPCS: 54700; 99284; J3490; 99283